=== PATIENT | female | born 1940 | race Caucasian/White ===

== ENCOUNTER 2016-11-01 07:17 | Day surgery (SDC) | payer MEDICARE, OTHER ==
[~2016-11-01 07:17] MED LIST: Lactated Ringers 1,000 ML IV SCH
[2016-11-01] MEDS ORDERED: Lidocaine 2% 100 MG/5 ML Syringe IVPUSH ONE (08:45)
[2016-11-01] MEDS ORDERED: Propofol 200 MG/20 ML SDV IV ONE (08:45)
[2016-11-01] MEDS ORDERED: Midazolam 1 MG/ML 2 ML SDV IV ONE (08:45)
--- NOTE | 2016-11-01 08:49 | PCM.PN ---
- General Info Date of Service: 11/01/16 - Review of Systems Systems Review Comment:: 76 y/o female here for EGD and esophageal dilation. She has mild URI but is stable to proceed. There has been no other significant changes from her recent evaluation. She agrees to proceed. - Patient Data Vitals - most recent: Last Vital Signs Temp 97.4 F 11/01/16 07:45 Pulse 79 11/01/16 07:45 Resp 18 11/01/16 07:45 BP 139/72 11/01/16 07:45 Pulse Ox 97 11/01/16 07:45 Weight - most recent: 140 lb Med Orders - Current: Current Medications Lactated Ringer's (Ringers, Lactated) 1,000 mls @ 125 mls/hr IV ASDIRECTED [facility] Last Admin: 11/01/16 08:33 Dose: 125 mls/hr - Problem List Review Problem List Initiated/Reviewed/Updated: Yes - My Orders Last 24 Hours: My Active Orders 10/31/16 09:55 Resuscitation Status Routine 11/01/16 07:15 Patient Status [ADT] Routine Patient to Empty Bladder [RC] ASDIRECTED Verify Patient Consent Obtain [RC] ASDIRECTED Lactated Ringers [Ringers, Lactated] 1,000 ml IV ASDIRECTED Peripheral IV Insertion Adult [OM.PC] Routine 11/01/16 Breakfast Nothing Per Oral Diet [DIET] - Assessment Assessment:: recurrent esophageal stenosis - Plan Plan:: EGD with Esophageal Dilation
--- NOTE | 2016-11-01 09:20 | PCM.OPNOTE ---
- General Post-Op/Procedure Note Date of Surgery/Procedure: 11/01/16 Operative Procedure(s): EGD with Balloon Dilation and Biopsy Findings: Esophageal stenosis and GE Jct Moderate sized hiatal hernia white patches on esophageal mucosa - possible nikole esophagitis Pre Op Diagnosis: Recurrent esophageal stenosis Post-Op Diagnosis: Recurrent eophageal stenosis. Hiatal Hernia. Possible nikole esophagitis Anesthesia Technique: MAC Primary Surgeon: Fred Weiner Pathology: Biopsies of Mid Esophagus EBL in mLs: 4 Complications: None Condition: Good
[2016-11-01 10:49] VITALS: BP 135/78
--- NOTE | 2016-11-01 12:15 | OR ---
DATE OF OPERATION: 11/01/2016 SURGEON: Fred Weiner MD PREOPERATIVE DIAGNOSIS: Recurrent esophageal stricture. POSTOPERATIVE DIAGNOSES: Recurrent esophageal stricture, hiatal hernia, and esophagitis. OPERATION PERFORMED: Esophagogastroduodenoscopy with balloon dilation of esophageal stricture and biopsy. 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 Her last dilation was about six months ago and she comes with increasing dysphagia for re-dilation of her stenosis. FINDINGS: At the GE junction 35 cm from the incisors, the patient has a moderate stenosis. There is a moderate-sized hiatal hernia just below this, approximately 3 cm in size. The remainder of her stomach and duodenum appear unremarkable except for some benign polypoid changes secondary to PPI use in the stomach. In the mid esophagus, the patient has multiple white patches consistent with fungal esophagitis. PROCEDURE IN DETAIL: The patient was taken to the procedure room. She was given intravenous sedation and her throat was topically anesthetized. With the mouth gag in place, the esophagus was intubated under direct visualization with the Olympus gastroscope. This was carefully advanced under direct visualization down through the esophagus, stomach, and to the third portion of the duodenum. Full examination of the duodenum as well as the stomach is carried out including retroflexed examination of the fundus. The Godengo balloon dilator was then placed through the scope and the dilation of the esophageal stenosis is carried out to a 54-Khmer. The stenosis did appear to respond well to this dilation. There was a mild amount of heme noted, but no evidence of esophageal injury. Examination of the mid esophagus did show the above-described white patches and so biopsies of this area are taken to rule out Khadijah esophagitis. With no sign of any complicating process, the scope was removed and the patient was taken from the procedure room in satisfactory condition. ESTIMATED BLOOD LOSS: 4 mL. COMPLICATIONS: None. PROGNOSIS: Good. /[id number] MEAGAN/ANGELA
== END 2016-11-01 10:57 | disposition home or self-care (01) ==
LOC: FB.SDS 07:17
PROVIDERS: ATTEND Surgery
DX: B37.81 Candidal esophagitis (principal); K22.8 Other specified diseases of esophagus; K44.9 Diaphragmatic hernia without obstruction or gangrene; Z88.1 Allergy status to other antibiotic agents; Z88.8 Allergy status to other drugs, medicaments and biological substances
CPT/HCPCS: 00740; 43233; 43239; 88305; 88312; J2250; J2704; J7120

== ENCOUNTER 2017-10-19 06:45 | Day surgery (SDC) | payer MEDICARE, OTHER ==
[~2017-10-19 06:45] MED LIST changes: +Sodium Chloride 0.9% 10 ML Syringe FLUSH PRN
[2017-10-19] MEDS ORDERED: Propofol 200 MG/20 ML SDV IV ONE (08:00)
[2017-10-19] MEDS ORDERED: ceFAZolin 1 GM Vial IV ONE (08:00)
--- NOTE | 2017-10-19 08:09 | PCM.PN ---
- General Info Date of Service: 10/19/17 - Review of Systems Systems Review Comment:: 77 y/o female here for EGD and Dilation. She has a history of recurring esophageal stricture. She is medically stable to proceed. She understands indications options and risks. There has been no recent significant change to her health status. Heart - Regular with Murmur and Valve click Lungs clear - Patient Data Vitals - Most Recent: Last Vital Signs Temp 97.3 F 10/19/17 07:36 Pulse 70 10/19/17 07:36 Resp 16 10/19/17 07:36 BP 157/75 H 10/19/17 07:36 Pulse Ox 92 L 10/19/17 07:36 Weight - Most Recent: 141 lb Med Orders - Current: Current Medications Lactated Ringer's (Ringers, Lactated) 1,000 mls @ 125 mls/hr IV ASDIRECTED [facility] Last Admin: 10/19/17 07:52 Dose: 125 mls/hr Sodium Chloride (Saline Flush) 10 ml FLUSH ASDIRECTED PRN PRN Reason: Keep Vein Open - Problem List Review Problem List Initiated/Reviewed/Updated: Yes - My Orders Last 24 Hours: My Active Orders 10/18/17 11:41 Resuscitation Status Routine 10/19/17 06:45 Patient Status [ADT] Routine Patient to Empty Bladder [RC] ASDIRECTED Verify Patient Consent Obtain [RC] ASDIRECTED Lactated Ringers [Ringers, Lactated] 1,000 ml IV ASDIRECTED Sodium Chloride 0.9% [Saline Flush] 10 ml FLUSH ASDIRECTED PRN Peripheral IV Insertion Adult [OM.PC] Routine - Assessment Assessment:: Recurring esophageal stricture with dysphagia - Plan Plan:: EGD with dilation
--- NOTE | 2017-10-19 08:39 | PCM.OPNOTE ---
- General Post-Op/Procedure Note Date of Surgery/Procedure: 10/19/17 Operative Procedure(s): EGD with Balloon Esophageal Dilation Findings: Moderate Stricture at GE Jct Hiatal Hernia Khadijah Esophagitis in Mid Esophagus Pre Op Diagnosis: Recurrent Esophageal Stricture. Anemia Post-Op Diagnosis: Recurrent Esophageal Stricture. Hiatal Hernia. Khadijah Esophagitis Anesthesia Technique: MAC Primary Surgeon: Fred Weiner Pathology: none Output, Urine Amount: 0 EBL in mLs: 5 Complications: None Condition: Good
[2017-10-19 11:28] VITALS: BP 164/70
--- NOTE | 2017-10-19 15:03 | OR ---
DATE OF OPERATION: 10/19/2017 SURGEON: Fred Weiner MD PREOPERATIVE DIAGNOSES: 1. Recurrent esophageal stricture. 2. Anemia. POSTOPERATIVE DIAGNOSES: 1. Recurrent esophageal stricture. 2. Hiatal hernia. 3. Khadijah esophagitis. OPERATIONS PERFORMED: Esophagogastroduodenoscopy with balloon esophageal dilation. INDICATIONS FOR SURGERY: This 77-year-old female has a history of a recurring distal esophageal stricture. This was last dilated approximately 6 months ago. She is beginning to have dysphagia again, and she comes for dilation of this stricture. She was also noted recently to have anemia. FINDINGS: The patient did have a moderately severe benign-appearing stricture at the GE junction, located at 36 cm from the incisors. There was no associated mass effect. Just below this stricture is an approximately 3 cm hiatal hernia, that does not otherwise appear to be acutely inflamed. In the patient's mid- esophagus, there are white patches grossly consistent with Khadijah esophagitis, which the patient has had in the past. It does not appear as severe as has been previously noted. During examination of her stomach and duodenum, no ulcers or other abnormalities were noted. No visible signs of potential bleeding source to explain her anemia were identified. PROCEDURE IN DETAIL: The patient was taken to the procedure room. She was given intravenous sedation, and her throat was topically anesthetized. With her in the left lateral decubitus position, the esophagus was intubated via a mouth guard under direct visualization. The scope was then carefully advanced down through the esophagus, through the stricture, into the stomach, and then on into the duodenum where examination to the third portion was performed. After carefully examining the duodenum, the scope was withdrawn back into the stomach, where full examination including retroflexed examination of the fundus was performed. The ActionX Quantum TTC esophageal dilating balloon was then advanced into the scope. The balloon was tested and then the balloon was positioned across the esophageal stricture. Three successive dilations were carried out up to 54-Chinese. This dilation resulted in visible improvement in the caliber of the stenosis. A moderate amount of heme was noted with the dilation, but no visible evidence of esophageal injury was identified. The dilating balloon was removed. Reinspection of the area showed no sign of complication. The scope was then slowly withdrawn, re-examining the stomach, GE junction, and esophagus. The scope was removed. The patient was then taken from the procedure room in a satisfactory condition. ESTIMATED BLOOD LOSS: 5 mL. COMPLICATIONS: None. PROGNOSIS: Good. /[id number] MEAGAN/ANGELA ESTRADA
== END 2017-10-19 10:20 | disposition home or self-care (01) ==
LOC: FB.SDS 06:45
PROVIDERS: ATTEND Surgery
DX: K22.2 Esophageal obstruction (principal); K44.9 Diaphragmatic hernia without obstruction or gangrene; D64.9 Anemia, unspecified; B37.81 Candidal esophagitis; I10 Essential (primary) hypertension; M34.1 CR(E)ST syndrome; M19.90 Unspecified osteoarthritis, unspecified site; Z79.01 Long term (current) use of anticoagulants; Z79.899 Other long term (current) drug therapy; Z88.8 Allergy status to other drugs, medicaments and biological substances; Z87.891 Personal history of nicotine dependence
CPT/HCPCS: J0690; J2704; J7120

== ENCOUNTER 2019-01-06 11:03 | Day surgery (SDC) | payer MEDICARE, OTHER ==
[2019-01-06] MEDS ORDERED: Midazolam 1 MG/ML 2 ML SDV IV ONE (11:04)
[2019-01-06] MEDS ORDERED: Propofol 200 MG/20 ML SDV IV ONE (11:04)
[2019-01-06] MEDS ORDERED: Lidocaine 2% 100 MG/5 ML Syringe IVPUSH ONE (11:04)
[2019-01-06] MEDS ORDERED: Lactated Ringers 800 ML IV ONE (11:04)
[2019-01-06] MEDS ORDERED: Lactated Ringers 1,000 ML IV SCH (11:15)
[2019-01-06] MEDS ORDERED: Sodium Chloride 0.9% 10 ML Syringe FLUSH PRN (11:15)
--- NOTE | 2019-01-06 13:53 | PCM.PN ---
- General Info Date of Service: 01/06/19 - Review of Systems Systems Review Comment:: 79 y/o female here for EGD with dilation of esophageal stricture. She is stable to proceed. There has been no significant changes to her health status since her last exam. She agrees to proceed accepting risks. - Patient Data Vitals - Most Recent: Last Vital Signs Temp 98.3 F 01/06/19 11:47 Pulse 72 01/06/19 11:47 Resp 20 01/06/19 11:47 BP 172/93 H 01/06/19 11:47 Pulse Ox 94 L 01/06/19 11:47 Weight - Most Recent: 137 lb 2 oz Med Orders - Current: Current Medications Lactated Ringer's (Ringers, Lactated) 1,000 mls @ 125 mls/hr IV ASDIRECTED [facility] Last Admin: 01/06/19 11:53 Dose: 125 mls/hr Sodium Chloride (Saline Flush) 10 ml FLUSH ASDIRECTED PRN PRN Reason: Keep Vein Open - Problem List Review Problem List Initiated/Reviewed/Updated: Yes - My Orders Last 24 Hours: My Active Orders 01/06/19 11:15 Patient Status [ADT] Routine Patient to Empty Bladder [RC] ASDIRECTED Verify Patient Consent Obtain [RC] ASDIRECTED Lactated Ringers [Ringers, Lactated] 1,000 ml IV ASDIRECTED Sodium Chloride 0.9% [Saline Flush] 10 ml FLUSH ASDIRECTED PRN Peripheral IV Insertion Adult [OM.PC] Routine 01/06/19 Breakfast Nothing Per Oral Diet [DIET] - Assessment Assessment:: Recurrent Esophageal Stricture with Dysphagia - Plan Plan:: EGD with Stricture Dilation
--- NOTE | 2019-01-06 14:40 | PCM.OPNOTE ---
- General Post-Op/Procedure Note Date of Surgery/Procedure: 01/06/19 Operative Procedure(s): EGD with Balloon Dilation of Esophageal Stricture Findings: Moderate stricture of esophagus at GE Jct. White esophageal patches consistent with Khadijah Esophagitis Pre Op Diagnosis: Recurrent esophageal stricture Post-Op Diagnosis: Recurrent esophageal stricture. Khadijah esophagitis Anesthesia Technique: [facility] – [place], [place] Primary Surgeon: Fred Weiner Pathology: none EBL in mLs: 3 Complications: None Condition: Good
[2019-01-06 15:28] VITALS: BP 159/90
--- NOTE | 2019-01-06 17:03 | OR ---
DATE OF OPERATION: 01/06/2019 SURGEON: Fred Weiner MD PREOPERATIVE DIAGNOSIS: Recurrent esophageal stricture. POSTOPERATIVE DIAGNOSIS: Recurrent esophageal stricture and Khadijah esophagitis. OPERATION PERFORMED: Esophagogastroduodenoscopy with balloon dilation of esophageal stricture. INDICATIONS FOR SURGERY: This 79-year-old female has a known history of recurring esophageal strictures. She is again noticing dysphagia and comes for stricture dilation. FINDINGS: At the GE junction, the patient has a moderately tight benign- appearing esophageal stricture. The gastroscope is able to pass through this before dilation. The remainder of the stomach and duodenum appear unremarkable except for some benign-appearing polyps in the lining of the stomach. The mid and upper portion of the esophagus had multiple white patches consistent with Khadijah esophagitis. PROCEDURE IN DETAIL: She was given intravenous sedation, and with her in the left lateral decubitus position, the gastroscope was advanced through a mouth guard into the oral cavity. Carefully, the gastroscope was advanced past the cricopharyngeus, and the upper part of the esophagus then examined with the findings consistent with Khadijah esophagitis identified. The scope was then carefully advanced down through the distal esophageal stricture into the stomach and into the duodenum where examination of the third portion was performed. After examining the duodenum, the scope was withdrawn back into the stomach, where full examination including retroflexed examination of the fundus was performed. The 8 x 18 balloon esophageal dilator was then selected and inserted. The distal esophageal stricture was dilated in a stepwise manner up to a full 54-Georgian. There was some heme that was produced by the dilation which seemed to be effective with improvement in the caliber of the stricture, but no sign of complication was noted. After the dilator was removed, reinspection of the stomach and area of dilation was performed. The esophagus was then also examined as the scope was withdrawn. The scope was removed. The patient was then taken from the procedure room in satisfactory condition. ESTIMATED BLOOD LOSS: 3 mL. COMPLICATIONS: None. PROGNOSIS: Good. /[id number] MEAGAN/ANGELA
== END 2019-01-06 15:50 | disposition home or self-care (01) ==
LOC: FB.SDS 11:03
PROVIDERS: ATTEND Surgery
DX: K22.2 Esophageal obstruction (principal); K31.7 Polyp of stomach and duodenum; B37.81 Candidal esophagitis; K21.9 Gastro-esophageal reflux disease without esophagitis; I10 Essential (primary) hypertension; M34.1 CR(E)ST syndrome; Z95.2 Presence of prosthetic heart valve; Z79.01 Long term (current) use of anticoagulants; Z79.82 Long term (current) use of aspirin; Z79.899 Other long term (current) drug therapy
CPT/HCPCS: 00731; 43233; J2001; J2250; J2704; J7120

== ENCOUNTER 2020-02-20 00:06 | Emergency (ER) | payer MEDICARE, OTHER ==
[2020-02-20 00:25] VITALS: BP 130/79; PULSE 81
--- NOTE | 2020-02-20 00:32 | EDM.PDOC ---
ED HPI GENERAL MEDICAL PROBLEM - General Stated Complaint: SHAKING Time Seen by Provider: 02/20/20 00:06 Source of Information: Reports: Patient History Limitations: Reports: No Limitations - History of Present Illness INITIAL COMMENTS - FREE TEXT/NARRATIVE: c/o weakness pt had flu vax this afternoon, found in a chair by granddaughter who thought her eyes were fluttering and called 911 pt Ox4 when EMS arrived, had some weakness from myasthenia gravis which is typical for her for this time of day, not on meds of MG granddaughter found her GF at home earlier this year and EMS thinks she may have panicked PO 93% initial and then repeat was 97% has been taking her meds PMH/PSH includes AVR, afib, ablation, no prior DC lives in own house, other family members did go to a wedding recently in the [facility] pt states she had her flu vax at 11a, then she was tired this afternoon, had gotten chicken from [employer] for supper and then was too tired to eat it usually goes to bed between 11p and MN, had fallen asleep in her chair when granddaughter found here feeling okay now except weak, no cough, denies f/c/d altho has temp 100 here (which may be d/t flu vax) will do workup d/t age and fever and weakness, pt agreeable - Related Data Allergies Allergy/AdvReac Type Severity Reaction Status Date / Time brimonidine tartrate Allergy Redness Verified 01/02/19 14:22 [From Alphagan P] carboxymethylcellulose sodium Allergy Itching Verified 01/02/19 14:22 [From Refresh Optive] glycerin Allergy Itching Verified 01/02/19 14:22 [From Refresh Optive] loratadine [From Claritin] Allergy Other Verified 01/02/19 14:22 clarithromycin [From Biaxin] AdvReac DIARRHES Verified 01/02/19 14:22 lisinopril AdvReac Cough Verified 01/02/19 14:22 Home Meds: Home Meds Albuterol Sulfate [Albuterol Sulfate HFA] 2 puff IH QID PRN 04/25/13 [History] Aspirin 81 mg PO DAILY 04/25/13 [History] Bimatoprost [Lumigan 0.01% Ophth Soln] 1 drop EYEBOTH BEDTIME 04/25/13 [History] Calcium Carbonate 600 mg PO BID 04/25/13 [History] Dorzolamide [Trusopt 2% Ophth Soln] 1 drop EYELF BID 04/25/13 [History] Fish Oil/Borage/Flax/Om3,6,9 1 [[place] 3-6-9 Complex Softgel] 1,000 mg PO DAILY 04/25/13 [History] Furosemide [Lasix] 20 mg PO DAILY PRN 04/25/13 [History] Lutein 20 mg PO DAILY 04/25/13 [History] Multivitamin [Multivitamins] 1 each PO DAILY 04/25/13 [History] Omeprazole [Prilosec] 20 mg PO DAILY 04/25/13 [History] Zinc Acetate [Galzin] 50 mg PO DAILY 04/25/13 [History] diphenhydrAMINE [Benadryl] 25 mg PO BEDTIME PRN 04/25/13 [History] Carboxymethylcell/Hypromellose [GenTeal Moderate to Severe Gel Drops] 1 drop EYEBOTH BEDTIME 11/03/14 [History] Warfarin [Coumadin] 5 mg PO DAILY 11/03/14 [History] Fluticasone/Salmeterol [Advair 100-50] 1 puff INH BID 11/04/14 [History] Losartan [Cozaar] 50 mg PO DAILY 04/19/15 [History] Diltiazem [Cardizem CD] 180 mg PO DAILY 04/27/16 [History] Diltiazem [Cardizem SR] 60 mg PO Q6H PRN 04/27/16 [History] Polyethylene Glycol 3350 [MiraLAX] 17 gm PO DAILY PRN 04/27/16 [History] Amoxicillin [Amoxil] 2,000 mg PO ASDIRECTED 10/31/16 [History] Nystatin/Triamcinolone Crm [Mycolog Crm] 1 applic TOP ASDIRECTED 10/31/16 [History] Triamcinolone Acetonide [Nasacort] 1 spr DOROTHY DAILY PRN 10/31/16 [History] Ferrous Sulfate 648 mg PO BID 10/19/17 [History] Acetaminophen [Tylenol Arthritis] 650 mg PO BID PRN 01/02/19 [History] Acetaminophen/Diphenhydramine [Tylenol Pm Ex-Strength Caplet] 1 each PO BEDTIME 01/02/19 [History] Dextran 70/Hypromellose [Genteal Tears 0.1%-0.3% Drop] 1 drop OP QID 01/02/19 [History] Enoxaparin [Lovenox] 60 mg SQ ASDIRECTED 01/02/19 [History] Rosuvastatin [Crestor] 10 mg PO DAILY 01/02/19 [History] Triamcinolone Acetonide [Kenalog 0.1% Crm] 1 applic TOP BID 01/02/19 [History] Amoxicillin/Potassium Clav [Augmentin 500-125 Tablet] 1 each PO BID #10 tablet 02/20/20 [Rx] Past Medical History HEENT History: Reports: Allergic Rhinitis, Cataract, Glaucoma, Impaired Vision Cardiovascular History: Reports: Afib, CAD, Heart Murmur, Heart Valve Replacement, Hypertension Other Cardiovascular History: psvt, avr, atrial flutter, Respiratory History: Reports: Asthma, Pneumonia, Recurrent Other Respiratory History: mild pulmonary hypertension Gastrointestinal History: Reports: Cholelithiasis, GERD Other Gastrointestinal History: ulcerative colitis, crest syndrome, colon polyps/RECURRENTESOPHAGEAL STRICTURES Genitourinary History: Reports: Other (See Below) Other Genitourinary History: 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: Musculoskeletal History: Reports: Osteoarthritis Neurological History: Reports: Migraines Other Neuro History: myasthenia gravis Psychiatric History: Reports: None Endocrine/Metabolic History: Reports: None Hematologic History: Reports: Anemia, Iron Deficiency Immunologic History: Reports: Other (See Below) Other Immunologic History: scleroderma, CREST SYNDROME Oncologic (Cancer) History: Reports: None Dermatologic History: Reports: Venous Stasis Dermatitis - Infectious Disease History Infectious Disease History: Reports: Chicken Pox, Measles, Mumps - Past Surgical History Head Surgeries/Procedures: Reports: None HEENT Surgical History: Reports: Cataract Surgery, Tonsillectomy Cardiovascular Surgical History: Reports: Cardiac Ablation, Carotid Endarterectomy, Valve Replacement Other Cardiovascular Surgeries/Procedures: cardiac ablation 03/2016 GI Surgical History: Reports: Appendectomy, Cholecystectomy, Colonoscopy, EGD Musculoskeletal Surgical History: Reports: Shoulder Surgery Other Musculoskeletal Surgeries/Procedures:: LEFT ROTATOR CUFF SURGERY. Social & Family History - Family History Family Medical History: Noncontributory - Caffeine Use Caffeine Use: Reports: Soda ED ROS GENERAL - Review of Systems Review Of Systems: See Below Constitutional: Reports: No Symptoms, Weakness, Fatigue. Denies: Fever, Chills, Night Sweats, Diaphoresis HEENT: Reports: No Symptoms Respiratory: Reports: No Symptoms. Denies: Shortness of Breath, Cough Cardiovascular: Reports: No Symptoms Endocrine: Reports: No Symptoms GI/Abdominal: Reports: No Symptoms : Reports: No Symptoms Musculoskeletal: Reports: No Symptoms Skin: Reports: No Symptoms Neurological: Reports: No Symptoms Psychiatric: Reports: No Symptoms Hematologic/Lymphatic: Reports: No Symptoms Immunologic: Reports: No Symptoms ED EXAM, GENERAL - Physical Exam Exam: See Below Exam Limited By: No Limitations General Appearance: Alert, WD/WN, No Apparent Distress, Other (alert, quite pleasant, answers questions readily, nonill, normal speech, good eye contact) Eye Exam: Bilateral Eye: EOMI, PERRL Ears: Normal External Exam, Hearing Grossly Normal Head: Atraumatic, Normocephalic Neck: Normal Inspection, Supple, Non-Tender, Full Range of Motion. No: Lymphadenopathy (R), Lymphadenopathy (L) Respiratory/Chest: No Respiratory Distress, Lungs Clear, Normal Breath Sounds, No Accessory Muscle Use, Chest Non-Tender, Other (good AE, no cough) Cardiovascular: Irregularly Irregular, Other (2/6 MIRZA at LSB, quiet precordium) GI/Abdominal: Normal Bowel Sounds, Soft, Non-Tender, No Distention Back Exam: Normal Inspection, Full Range of Motion. No: CVA Tenderness (R), CVA Tenderness (L) Extremities: Normal Inspection, Non-Tender, No Pedal Edema Neurological: Alert, Oriented, CN II-XII Intact, Normal Cognition, No Mot or/Sensory Deficits Psychiatric: Normal Affect, Normal Mood Skin Exam: Warm, Dry, Intact, Normal Color, No Rash Lymphatic: No Adenopathy Course - Vital Signs Last Recorded V/S: Last Vital Signs Temp 38.1 C 02/20/20 00:20 Pulse 81 02/20/20 00:20 Resp 18 02/20/20 00:20 BP 130/79 02/20/20 00:20 Pulse Ox 96 02/20/20 00:20 - Orders/Labs/Meds Orders: Active Orders 24 hr Category Date Time Status Chest 2V [CR] Stat Exams 02/20/20 00:29 Taken Labs: Laboratory Tests 02/20/20 02/20/20 02/20/20 Range/Units 00:45 00:45 00:45 WBC 8.7 (4.5-12.0) X10-3/uL RBC 4.10 (3.23-5.20) x10(6)uL Hgb 11.5 (11.5-15.5) g/dL Hct 35.1 (30.0-51.3) % MCV 85.7 (80-96) fL MCH 28.1 (27.7-33.6) pg MCHC 32.8 (32.2-35.4) g/dL RDW 14.9 (11.5-15.5) % Plt Count 215 (125-369) X10(3)uL MPV 7.7 (7.4-10.4) fL Neut % (Auto) 87.3 H (46-82) % Lymph % (Auto) 4.1 L (13-37) % [place] % (Auto) 5.7 (4-12) % Eos % (Auto) 3 (1.0-5.0) % Baso % (Auto) 0 (0-2) % Neut # (Auto) 7.6 (1.6-8.3) # Lymph # (Auto) 0.4 L (0.6-5.0) # [place] # (Auto) 0.5 (0.0-1.3) # Eos # (Auto) 0.2 (0.0-0.8) # Baso # (Auto) 0.0 (0.0-0.2) # PT 25.8 H (9.0-11.1) sec INR 2.54 H (1.00-1.24) Sodium 142 (135-145) mmol/L Potassium 4.6 (3.5-5.3) mmol/L Chloride 105 (100-110) mmol/L Carbon Dioxide 25 (21-32) mmol/L BUN 18 (7-18) mg/dL Creatinine 1.1 H (0.55-1.02) mg/dL Est Cr Clr Drug Dosing 38.19 mL/min Estimated GFR (MDRD) 48 L (>60) BUN/Creatinine Ratio 16.4 (9-20) Glucose 106 (80-116) mg/dL Calcium 8.5 L (8.6-10.2) mg/dL Total Bilirubin 0.4 (0.1-1.3) mg/dL AST 18 D (5-25) IU/L ALT 20 D (12-36) U/L Alkaline Phosphatase 107 (56-112) IU/L C-Reactive Protein (0.5-0.9) mg/dL Total Protein 6.9 (6.0-8.0) g/dL Albumin 3.5 (3.2-4.6) g/dL Globulin 3.4 g/dL Albumin/Globulin Ratio 1.0 Urine Color (YELLOW) Urine Appearance (CLEAR) Urine pH (5.0-6.5) Ur Specific Kennedy (1.010-1.025) Urine Protein (NEGATIVE) mg/dL Urine Glucose (UA) (NORMAL) mg/dL Urine Ketones (NEGATIVE) mg/dL Urine Occult Blood (NEGATIVE) Urine Nitrite (NEGATIVE) Urine Bilirubin (NEGATIVE) Urine Urobilinogen (NEGATIVE) mg/dL Ur Leukocyte Esterase (NEGATIVE) Urine RBC (0-5) Urine WBC (0-5) Ur Squamous Epith Cells (NS,R,O) Urine Bacteria (NS) SARS-CoV-2 RNA (NANCY) (NEGATIVE) 02/20/20 02/20/20 02/20/20 Range/Units 00:45 01:05 01:08 WBC (4.5-12.0) X10-3/uL RBC (3.23-5.20) x10(6)uL Hgb (11.5-15.5) g/dL Hct (30.0-51.3) % MCV (80-96) fL MCH (27.7-33.6) pg MCHC (32.2-35.4) g/dL RDW (11.5-15.5) % Plt Count (125-369) X10(3)uL MPV (7.4-10.4) fL Neut % (Auto) (46-82) % Lymph % (Auto) (13-37) % [place] % (Auto) (4-12) % Eos % (Auto) (1.0-5.0) % Baso % (Auto) (0-2) % Neut # (Auto) (1.6-8.3) # Lymph # (Auto) (0.6-5.0) # [place] # (Auto) (0.0-1.3) # Eos # (Auto) (0.0-0.8) # Baso # (Auto) (0.0-0.2) # PT (9.0-11.1) sec INR (1.00-1.24) Sodium (135-145) mmol/L Potassium (3.5-5.3) mmol/L Chloride (100-110) mmol/L Carbon Dioxide (21-32) mmol/L BUN (7-18) mg/dL Creatinine (0.55-1.02) mg/dL Est Cr Clr Drug Dosing mL/min Estimated GFR (MDRD) (>60) BUN/Creatinine Ratio (9-20) Glucose (80-116) mg/dL Calcium (8.6-10.2) mg/dL Total Bilirubin (0.1-1.3) mg/dL AST (5-25) IU/L ALT (12-36) U/L Alkaline Phosphatase (56-112) IU/L C-Reactive Protein 1.6 H (0.5-0.9) mg/dL Total Protein (6.0-8.0) g/dL Albumin (3.2-4.6) g/dL Globulin g/dL Albumin/Globulin Ratio Urine Color Yellow (YELLOW) Urine Appearance Clear (CLEAR) Urine pH 7.0 H (5.0-6.5) Ur Specific Kennedy 1.005 L (1.010-1.025) Urine Protein Negative (NEGATIVE) mg/dL Urine Glucose (UA) Normal (NORMAL) mg/dL Urine Ketones Negative (NEGATIVE) mg/dL Urine Occult Blood Negative (NEGATIVE) Urine Nitrite Negative (NEGATIVE) Urine Bilirubin Negative (NEGATIVE) Urine Urobilinogen Normal (NEGATIVE) mg/dL Ur Leukocyte Esterase Negative (NEGATIVE) Urine RBC 0-5 (0-5) Urine WBC 0-5 (0-5) Ur Squamous Epith Cells Occasional (NS,R,O) Urine Bacteria Rare H (NS) SARS-CoV-2 RNA (NANYC) Negative (NEGATIVE) Meds: Medications Discontinued Medications Generic Name Dose Route Start Last Admin Trade Name Freq PRN Reason Stop Dose Admin Acetaminophen 650 mg 02/20/20 01:50 Tylenol PO 02/20/20 01:51 NOW ONE Amoxicillin/Clavulanate Potassium 1 tab 02/20/20 02:23 Augmentin 500 Mg\125 Mg PO 02/20/20 02:24 ONETIME ONE - Re-Assessments/Exams Free Text/Narrative Re-Assessment/Exam: 02/20/20 02:32 CxR 2v is neg on prelim ED read u/a neg labs are essentially neg altho there is mild increase in neutrophils and CRP suggesting possible infection pt did have fatigue prior to her influenza vaccine, while she says that she has been under a lot of stress d/t family issues (to which she attributes her fatigue), the same stress and fatigue would increase her susceptibility to infection Departure - Departure Time of Disposition: 02:24 Disposition: Home, Self-Care 01 Condition: Good Clinical Impression: Fever, Elevated C-reactive protein (CRP), Left shift, Fatigue - Discharge Information *PRESCRIPTION DRUG MONITORING PROGRAM REVIEWED*: Not Applicable *COPY OF PRESCRIPTION DRUG MONITORING REPORT IN PATIENT PRATIK: Not Applicable Prescriptions: Amoxicillin/Potassium Clav [Augmentin 500-125 Tablet] 1 each PO BID #10 tablet Referrals: PCP,None [Primary Care Provider] - Additional Instructions: It is likely that your low grade fever is due to the influenza vaccine. However, two of your blood tests are slightly increased, suggesting that you may be developing an infection such as pneumonia that is not yet visible on chest x- ray. As a precaution, take the antibiotic Augmentin 500/125 mg 1 tab 2 times a day for 5 days. Continue your regular medications. Rest at home this weekend. See Dr Alcantara in 3 days for further evaluation and recommendations. However, if you are feeling worse in the meantime, return to the Emergency Department. Sepsis Event Note (ED) - Focused Exam Vital Signs: Vital Signs Temp Pulse Resp BP Pulse Ox 02/20/20 00:20 38.1 C 81 18 130/79 96 - My Orders Last 24 Hours: My Active Orders 02/20/20 00:29 Chest 2V [CR] Stat - Assessment/Plan Last 24 Hours: My Active Orders 02/20/20 00:29 Chest 2V [CR] Stat
[2020-02-20] MEDS ORDERED: Acetaminophen 325 MG Tab PO ONE (01:50)
[2020-02-20] MEDS ORDERED: Amoxicillin/Clavulanate K 500-125 MG Tab PO ONE (02:23)
== END 2020-02-20 07:40 | disposition home or self-care (01) ==
LOC: FB.ED 00:06
DX: R79.82 Elevated C-reactive protein (CRP) (principal); R53.83 Other fatigue; D72.828 Other elevated white blood cell count; I48.91 Unspecified atrial fibrillation; I25.10 Atherosclerotic heart disease of native coronary artery without angina pectoris; K21.9 Gastro-esophageal reflux disease without esophagitis; M19.90 Unspecified osteoarthritis, unspecified site; D50.9 Iron deficiency anemia, unspecified; Z88.8 Allergy status to other drugs, medicaments and biological substances; Z88.1 Allergy status to other antibiotic agents; Z79.82 Long term (current) use of aspirin; Z79.899 Other long term (current) drug therapy; Z79.01 Long term (current) use of anticoagulants; Z20.828 Contact with and (suspected) exposure to other viral communicable diseases
CPT/HCPCS: 36415; 71046; 80053; 81001; 85025; 85610; 86140; 99285; A9270; U0002

== ENCOUNTER 2020-04-21 06:17 | Day surgery (SDC) | payer MEDICARE, OTHER ==
[2020-04-21] MEDS ORDERED: Propofol 200 MG/20 ML SDV IV ONE (06:18)
[2020-04-21] MEDS ORDERED: Lidocaine 2% 5 ML SDV INJECT ONE (06:18)
--- NOTE | 2020-04-21 07:38 | PCM.PN ---
- General Info Date of Service: 04/21/20 - Review of Systems Systems Review Comment:: 80 y/o female with history of recurrent esophageal strictures and current symptoms of dysphagia here for EGD with Esophageal Dilation. She is stable to proceed with no significant changes to her health status since her recent clinic visit. She agrees to proceed accepting risks. - Patient Data Vitals - Most Recent: Last Vital Signs Temp 97.8 F 04/21/20 06:20 Pulse 69 04/21/20 06:20 Resp 16 04/21/20 06:20 BP 152/63 H 04/21/20 06:20 Pulse Ox 99 04/21/20 06:20 Weight - Most Recent: 139 lb 8.842 oz Med Orders - Current: Current Medications Lactated Ringer's (Ringers, Lactated) 1,000 mls @ 125 mls/hr IV ASDIRECTED SALO Last Admin: 04/21/20 06:55 Dose: 125 mls/hr Documented by: Sodium Chloride (Saline Flush) 10 ml FLUSH ASDIRECTED PRN PRN Reason: Keep Vein Open Sepsis Event Note - Focused Exam Vital Signs: Vital Signs Temp Pulse Resp BP Pulse Ox 04/21/20 06:20 97.8 F 69 16 152/63 H 99 - Problem List Review Problem List Initiated/Reviewed/Updated: Yes - My Orders Last 24 Hours: My Active Orders 04/20/20 11:24 Resuscitation Status Routine 04/20/20 Dinner Nothing Per Oral Diet [DIET] 04/21/20 06:15 Patient Status [ADT] Routine Patient to Empty Bladder [RC] ASDIRECTED Verify Patient Consent Obtain [RC] ASDIRECTED Lactated Ringers [Ringers, Lactated] 1,000 ml IV ASDIRECTED Sodium Chloride 0.9% [Saline Flush] 10 ml FLUSH ASDIRECTED PRN Peripheral IV Insertion Adult [OM.PC] Routine - Assessment Assessment:: Dysphagia with history of esophageal stricture - Plan Plan:: EGD with probable dilation.
--- NOTE | 2020-04-21 08:04 | PCM.OPNOTE ---
- General Post-Op/Procedure Note Date of Surgery/Procedure: 04/21/20 Operative Procedure(s): EGD with Balloon Esophageal Dilation Findings: Moderate Esophageal stricture at GE Jct. Moderate to Extensive Khadijah Esophagitis in mid esophagus Small hiatal hernia Pre Op Diagnosis: Dysphagia Post-Op Diagnosis: Esophageal Stricture. Khadijah Esophagitis. Hiatal Hernia Anesthesia Technique: MAC Primary Surgeon: Fred Weiner Pathology: none EBL in mLs: 3 Complications: None Condition: Good
--- NOTE | 2020-04-21 11:19 | OR ---
DATE OF OPERATION: 04/21/2020 SURGEON: Fred Weiner MD PREOPERATIVE DIAGNOSIS: Dysphagia. POSTOPERATIVE DIAGNOSES: 1. Esophageal stricture. 2. Khadijah esophagitis. 3. Hiatal hernia. OPERATION PERFORMED: Esophagogastroduodenoscopy with balloon esophageal dilation. INDICATIONS FOR SURGERY: This 80-year-old female, who has a history of recurring esophageal strictures, has developed symptoms of dysphagia and comes now for EGD. FINDINGS: The patient has a moderate stricture of the distal esophagus at the GE junction. This appears benign and consistent with previous strictures that she has had. She also has a moderate to extensive amount of white patches in the midesophagus consistent with Khadijah esophagitis. She also has a small hiatal hernia. The remainder of the stomach and the proximal duodenum appear normal. PROCEDURE IN DETAIL: The patient was taken to the procedure room. She was given intravenous sedation, and with her in the left lateral decubitus position, the Olympus gastroscope was advanced through a mouth guard into the oral cavity. Under direct visualization, the scope was then advanced down through the esophagus, stomach, and into the duodenum where examination to the 3rd portion was performed. After examining the duodenum, the scope was withdrawn back into the stomach where full examination was carried out including retroflexed examination of the fundus. The GE junction was carefully examined, and the stricture was identified. An 18 x 8 dilating balloon was then placed, and successive dilations were carried out to the full diameter of the balloon. This resulted in moderate mucosal disruption and improvement in the stricture. The balloon was removed. Reinspection of the area showed no sign of any complication. The scope was then slowly withdrawn and removed. The patient was then taken from the procedure room in satisfactory condition. ESTIMATED BLOOD LOSS: 3 mL. COMPLICATIONS: None. PROGNOSIS: Good. /[id number] MEAGAN/ANGELA
[2020-04-21 12:23] VITALS: PULSE 67
[2020-04-21 12:24] VITALS: BP 157/59
== END 2020-04-21 08:40 | disposition home or self-care (01) ==
LOC: FB.SDS 06:17
PROVIDERS: ATTEND Surgery
DX: K22.2 Esophageal obstruction (principal); B37.81 Candidal esophagitis; K44.9 Diaphragmatic hernia without obstruction or gangrene; I10 Essential (primary) hypertension; I48.0 Paroxysmal atrial fibrillation; Z90.49 Acquired absence of other specified parts of digestive tract; Z88.8 Allergy status to other drugs, medicaments and biological substances; Z79.82 Long term (current) use of aspirin; Z87.891 Personal history of nicotine dependence
CPT/HCPCS: 00731-QZ; C1726; J2001; J2704; J7120

== ENCOUNTER 2020-07-26 06:52 | Day surgery (SDC) | payer MEDICARE, OTHER ==
[2020-07-26] MEDS ORDERED: Propofol 200 MG/20 ML SDV IV ONE (06:53)
[2020-07-26] MEDS ORDERED: Lidocaine 2% 100 MG/5 ML Syringe IVPUSH ONE (06:53)
--- NOTE | 2020-07-26 09:03 | PCM.PN ---
- General Info Date of Service: 07/26/20 - Review of Systems Systems Review Comment:: 80 y/o female with history of recurring esophageal stricture here with increasing dysphagia. She is medically stable to proceed. Her recent H and P is reviewed and no significant changes are noted. I discussed the proposed EGD with dilation with the patient and she agrees to proceed accepting risks. - Patient Data Vitals - Most Recent: Last Vital Signs Temp 97.4 F 07/26/20 08:50 Pulse 61 07/26/20 08:50 Resp 18 07/26/20 08:50 BP 133/47 L 07/26/20 08:50 Pulse Ox 99 07/26/20 08:50 Weight - Most Recent: 139 lb Med Orders - Current: Current Medications Lactated Ringer's (Ringers, Lactated) 1,000 mls @ 125 mls/hr IV ASDIRECTED SALO Last Admin: 07/26/20 07:30 Dose: 125 mls/hr Documented by: Sodium Chloride (Sodium Chloride 0.9% 10 Ml Syringe) 10 ml FLUSH ASDIRECTED PRN PRN Reason: Keep Vein Open Sepsis Event Note - Focused Exam Vital Signs: Vital Signs Temp Pulse Resp BP Pulse Ox 07/26/20 08:50 97.4 F 61 18 133/47 L 99 07/26/20 07:30 156/65 H 07/26/20 06:55 97.2 F 75 16 172/67 H 96 - Problem List Review Problem List Initiated/Reviewed/Updated: Yes - My Orders Last 24 Hours: My Active Orders 07/25/20 Dinner Nothing Per Oral Diet [DIET] 07/26/20 06:45 Patient Status [ADT] Routine Patient to Empty Bladder [RC] ASDIRECTED Verify Patient Consent Obtain [RC] ASDIRECTED Sodium Chloride 0.9% [Saline Flush] 10 ml FLUSH ASDIRECTED PRN Peripheral IV Insertion Adult [OM.PC] Routine - Assessment Assessment:: Dysphagia with history of recurring esophageal strictures - Plan Plan:: EGD with Dilation
--- NOTE | 2020-07-26 09:09 | PCM.OPNOTE ---
- General Post-Op/Procedure Note Date of Surgery/Procedure: 07/26/20 Operative Procedure(s): EGD with balloon esophageal dilation Findings: Distal esophageal stricture Hiatal Hernia Gastric Polyps Suspect persistent nikole esophagitis Pre Op Diagnosis: Dysphagia with history of esophageal stricture Post-Op Diagnosis: Esophageal stricture Anesthesia Technique: MAC Primary Surgeon: Fred Weiner Pathology: none EBL in mLs: 2 Complications: None Condition: Good
[2020-07-26 09:24] VITALS: BP 172/64; PULSE 64
--- NOTE | 2020-07-26 16:04 | OR ---
DATE OF OPERATION: 07/26/2020 SURGEON: Fred Weiner MD PREOPERATIVE DIAGNOSIS: Dysphagia with history of esophageal stricture. POSTOPERATIVE DIAGNOSES: Esophageal stricture, hiatal hernia, gastric polyps. OPERATION PERFORMED: Esophagogastroduodenoscopy with balloon esophageal dilation. INDICATIONS FOR SURGERY: This 80-year-old female has a history of recurring distal esophageal strictures. She has again developed dysphagia consistent with redevelopment of the stricture and she comes for EGD and dilation. FINDINGS: At the patient's GE junction, a single benign-appearing stricture has again developed of moderate narrowing. There is an associated hiatal hernia just below this stricture. The gastric mucosa appears minimally generally inflamed, and there are multiple benign polyps, but no ulcers or other pathology is seen. Her duodenum appears normal. The esophageal lining does again contain findings consistent with possible Khadijah esophagitis as the patient has had in the past although improved from before. PROCEDURE IN DETAIL: The patient was taken to the operating room. She was given intravenous sedation, and with her in the left lateral decubitus position, the Olympus gastroscope was advanced into the oral cavity through a mouth guard. Under direct visualization, the scope was then advanced down through the esophagus, stomach, and into the duodenum where examination to the third portion was performed. After examining the duodenum and the stomach including retroflexed examination of the fundus, an esophageal dilating balloon was then inserted, and after testing the balloon, this balloon was used in successive gradual dilations to dilate the patient's stricture to 54 [place]. There was a moderate amount of heme associated with this and dilation appeared to be satisfactory. There was no evidence of any complication. After reinspecting the stomach and the esophagus and showing no evidence of complication, the scope was removed and the patient was taken from the operating room in satisfactory condition. ESTIMATED BLOOD LOSS: 2 mL. COMPLICATIONS: None. PROGNOSIS: Good. /[id number] MEAGAN/ANGELA ESTRADA
== END 2020-07-26 10:22 | disposition home or self-care (01) ==
LOC: FB.SDS 06:52
PROVIDERS: ATTEND Surgery
DX: K22.2 Esophageal obstruction (principal); K31.7 Polyp of stomach and duodenum; K44.9 Diaphragmatic hernia without obstruction or gangrene; I10 Essential (primary) hypertension; E78.5 Hyperlipidemia, unspecified; R53.83 Other fatigue; I48.0 Paroxysmal atrial fibrillation; J45.909 Unspecified asthma, uncomplicated; Z88.8 Allergy status to other drugs, medicaments and biological substances; Z79.899 Other long term (current) drug therapy; Z87.891 Personal history of nicotine dependence; Z98.890 Other specified postprocedural states
CPT/HCPCS: 00731-QZ; C1726; J2704; J7120

== ENCOUNTER 2021-04-18 06:53 | Day surgery (SDC) | payer MEDICARE, OTHER ==
[2021-04-18] MEDS ORDERED: Propofol 200 MG/20 ML SDV IV ONE (06:54)
[2021-04-18] MEDS ORDERED: Lactated Ringers 1,000 ML IV SCH (09:00)
[2021-04-18] MEDS ORDERED: Sodium Chloride 0.9% 10 ML Syringe FLUSH PRN (09:00)
--- NOTE | 2021-04-18 10:27 | PCM.PN ---
- General Info Date of Service: 04/18/21 - Review of Systems General: Reports: Other (Recovering from fall with fracture of pelvis and wrist) Pulmonary: Reports: No Symptoms, Shortness of Breath Cardiovascular: Reports: Other (being followed be cardiology). Denies: Chest Pain Gastrointestinal: Reports: Difficulty Swallowing (slowly worsening since last esophageal dilation) - Patient Data Vitals - Most Recent: Last Vital Signs Temp 98.8 F 04/18/21 08:35 Pulse 69 04/18/21 08:35 Resp 16 04/18/21 08:35 BP 170/71 H 04/18/21 08:35 Pulse Ox 98 04/18/21 08:35 Weight - Most Recent: 136 lb Med Orders - Current: Current Medications Lactated Ringer's (Ringers, Lactated) 1,000 mls @ 125 mls/hr IV ASDIRECTED SALO Last Admin: 04/18/21 08:50 Dose: 125 mls/hr Documented by: Sodium Chloride (Sodium Chloride 0.9% 10 Ml Syringe) 10 ml FLUSH ASDIRECTED PRN PRN Reason: Keep Vein Open - Exam General: Alert, Oriented Lungs: Clear to Auscultation, Normal Respiratory Effort Cardiovascular: Regular Rate, Regular Rhythm GI/Abdominal Exam: Soft, Non-Tender Sepsis Event Note - Focused Exam Vital Signs: Vital Signs Temp Pulse Resp BP Pulse Ox 04/18/21 08:35 98.8 F 69 16 170/71 H 98 - Problem List Review Problem List Initiated/Reviewed/Updated: Yes - My Orders Last 24 Hours: My Active Orders 04/18/21 Breakfast Nothing Per Oral Diet [DIET] 04/18/21 09:00 Patient Status [ADT] Routine Patient to Empty Bladder [RC] ASDIRECTED Verify Patient Consent Obtain [RC] ASDIRECTED Lactated Ringers [Ringers, Lactated] 1,000 ml IV ASDIRECTED Sodium Chloride 0.9% [Saline Flush] 10 ml FLUSH ASDIRECTED PRN Peripheral IV Insertion Adult [OM.PC] Routine - Assessment Assessment:: Dysphagia with history of recurring esophageal stenosis History of CREST syndrome healing fractures in pelvis and wrist after fall - Plan Plan:: EGD with esophgeal dilation
--- NOTE | 2021-04-18 11:06 | PCM.OPNOTE ---
- General Post-Op/Procedure Note Date of Surgery/Procedure: 04/18/21 Operative Procedure(s): EGD with balloon esophageal dilation Findings: Moderate esophageal stricture at GE Jct. Moderate sized hiatal hernia Pre Op Diagnosis: Recurent esophageal stricture Post-Op Diagnosis: Same Anesthesia Technique: MAC Primary Surgeon: Fred Weiner Pathology: none EBL in mLs: 3 Complications: None Condition: Good
[2021-04-18 11:45] VITALS: BP 150/63; PULSE 67
--- NOTE | 2021-04-18 12:24 | OR ---
DATE OF OPERATION: 04/18/2021 SURGEON: Fred Weiner MD PREOPERATIVE DIAGNOSIS: Recurrent esophageal stricture. POSTOPERATIVE DIAGNOSIS: Recurrent esophageal stricture. OPERATION PERFORMED: Esophagogastroduodenoscopy with balloon esophageal dilation. INDICATIONS FOR SURGERY: This 81-year-old female with a known history of hiatal hernia and CREST syndrome has a history of recurring esophageal strictures. These require periodic dilation and she is again noticing dysphagia and comes for this procedure. FINDINGS: The patient does have a moderate esophageal stricture at the GE junction. The scope is able to traverse this stricture prior to dilation. There is a moderate-sized hiatal hernia, but the remainder of the duodenum and stomach appear normal. The patient also has a history of Khadijah esophagitis and only minimal findings consistent with that are noted on today's exam. PROCEDURE: The patient was taken to the procedure room. She was given intravenous sedation and her throat was topically anesthetized. She was given intravenous sedation. The Olympus gastroscope was advanced through a mouth guard into the oral cavity. Under direct visualization, the scope was then carefully advanced through the oropharynx into the esophagus and then on down through the esophagus. It traversed the stricture and was advanced into the stomach. The scope was advanced down through the stomach and into the duodenum where examination to the fourth portion was performed. After examining the duodenum, the scope was withdrawn back into the stomach and full examination including retroflexed examination of the fundus was performed. The dilating balloon which was 8 x 18 mm was then placed through the scope and after assuring that the balloon dilated properly, it was positioned at the level of the esophageal stricture. It was dilated to 1.8 atmospheres and then dilated up to 2.6 atmospheres. This did appear to result in significant dilation of the stricture. There was a moderate amount of heme noted, and the balloon was not dilated to any more than this level. Reinspection of the stricture was then carried out. Good dilation appeared to have been achieved and no sign of any complication noted. The scope was removed and the patient was taken from the procedure room in satisfactory condition. ESTIMATED BLOOD LOSS: 3 mL. COMPLICATIONS: None. PROGNOSIS: Good. /[id number] MEAGAN/ANGELA ESTRADA
== END 2021-04-18 12:00 | disposition home or self-care (01) ==
LOC: FB.SDS 06:53
PROVIDERS: ATTEND Surgery
DX: K22.2 Esophageal obstruction (principal); K44.9 Diaphragmatic hernia without obstruction or gangrene; M34.1 CR(E)ST syndrome; E78.5 Hyperlipidemia, unspecified; I10 Essential (primary) hypertension; H18.519 Endothelial corneal dystrophy, unspecified eye; I48.0 Paroxysmal atrial fibrillation; D64.9 Anemia, unspecified; J45.20 Mild intermittent asthma, uncomplicated; I27.20 Pulmonary hypertension, unspecified; I49.1 Atrial premature depolarization; G72.0 Drug-induced myopathy; T46.6X5A Adverse effect of antihyperlipidemic and antiarteriosclerotic drugs, initial encounter; R93.1 Abnormal findings on diagnostic imaging of heart and coronary circulation; K21.9 Gastro-esophageal reflux disease without esophagitis; Z79.899 Other long term (current) drug therapy; Z79.82 Long term (current) use of aspirin; Z87.891 Personal history of nicotine dependence; Z88.8 Allergy status to other drugs, medicaments and biological substances; Z79.01 Long term (current) use of anticoagulants
CPT/HCPCS: 00731; 43249; J2704; J7120

== ENCOUNTER 2021-07-07 14:18 | Inpatient (IN) | payer MEDICARE, OTHER ==
[2021-07-07] MEDS ORDERED: Polyethylene Glycol 3350 Powder 17 GM Packet PO PRN (15:16)
[2021-07-07] MEDS ORDERED: Acetaminophen 650 MG Tab.ER PO PRN (15:16)
[2021-07-07] MEDS ORDERED: Albuterol 8 GM Inhaler INH PRN (15:16)
[2021-07-07] MEDS ORDERED: Warfarin Sliding Scale PO SCH (15:30)
[2021-07-07] MEDS: Hypromellose 0.3% Ophth Soln 15 ML Bottle EYEBOTH SCH ×2 (17:40→21:05)
[2021-07-07] MEDS: Ferrous Sulfate 325 MG Tab PO SCH (17:41)
[2021-07-07] MEDS: Oxybutynin 5 MG Tab.ER PO SCH (17:41)
[2021-07-07] MEDS: Formoterol/Mometasone 100-5 MCG 8.8 GM Inhaler IH SCH (21:04)
[2021-07-07] MEDS: Dorzolamide 2% Ophth Soln 10 ML Bottle EYELF SCH (21:05)
[2021-07-07] MEDS: Acetaminophen 500 MG Tab PO SCH (21:06)
[2021-07-07] MEDS: Latanoprost 0.005% Ophth Soln 2.5 ML Bottle EYEBOTH SCH (21:07)
[2021-07-08] MEDS: Pantoprazole 40 MG Tab.CR PO SCH (06:07)
[2021-07-08] MEDS: Metoprolol Succinate 25 MG Tab.ER PO SCH (08:31)
[2021-07-08] MEDS: Zinc Sulfate 220 MG Cap PO SCH (08:31)
[2021-07-08] MEDS: Fish Oil/Omega-3 Fatty Acids 1 Gm Cap PO SCH (08:32)
[2021-07-08] MEDS: Rosuvastatin 10 MG Tab PO SCH (08:32)
[2021-07-08] MEDS: Multivitamin Tab PO SCH (08:32)
[2021-07-08] MEDS: Magnesium Oxide 400 MG Tab PO SCH (08:33)
[2021-07-08] MEDS: Diltiazem 120 MG Cap.CD PO SCH (08:33)
[2021-07-08] MEDS: Aspirin 81 MG Tab.EC PO SCH (08:33)
[2021-07-08] MEDS: Ferrous Sulfate 325 MG Tab PO SCH ×2 (08:34→17:31)
[2021-07-08] MEDS: Formoterol/Mometasone 100-5 MCG 8.8 GM Inhaler IH SCH ×2 (08:34→20:58)
[2021-07-08] MEDS: Hypromellose 0.3% Ophth Soln 15 ML Bottle EYEBOTH SCH ×4 (08:35→20:58)
[2021-07-08] MEDS: Dorzolamide 2% Ophth Soln 10 ML Bottle EYELF SCH ×2 (08:35→20:58)
[2021-07-08] MEDS: Warfarin 5 MG Tab PO SCH (16:18)
[2021-07-08] MEDS: Oxybutynin 5 MG Tab.ER PO SCH (17:31)
[2021-07-08] MEDS: Acetaminophen 500 MG Tab PO SCH (20:57)
[2021-07-08] MEDS: Latanoprost 0.005% Ophth Soln 2.5 ML Bottle EYEBOTH SCH (21:04)
[2021-07-09] MEDS: Pantoprazole 40 MG Tab.CR PO SCH (06:13)
[2021-07-09] MEDS: Ferrous Sulfate 325 MG Tab PO SCH ×2 (08:29→18:15)
[2021-07-09] MEDS: Fish Oil/Omega-3 Fatty Acids 1 Gm Cap PO SCH (08:30)
[2021-07-09] MEDS: Rosuvastatin 10 MG Tab PO SCH (08:30)
[2021-07-09] MEDS: Formoterol/Mometasone 100-5 MCG 8.8 GM Inhaler IH SCH ×2 (08:31→21:12)
[2021-07-09] MEDS: Diltiazem 120 MG Cap.CD PO SCH (08:32)
[2021-07-09] MEDS: Hypromellose 0.3% Ophth Soln 15 ML Bottle EYEBOTH SCH ×4 (08:38→21:13)
[2021-07-09] MEDS: Magnesium Oxide 400 MG Tab PO SCH (08:39)
[2021-07-09] MEDS: Multivitamin Tab PO SCH (08:39)
[2021-07-09] MEDS: Aspirin 81 MG Tab.EC PO SCH (08:39)
[2021-07-09] MEDS: Metoprolol Succinate 25 MG Tab.ER PO SCH (08:40)
[2021-07-09] MEDS: Dorzolamide 2% Ophth Soln 10 ML Bottle EYELF SCH ×2 (08:41→21:13)
[2021-07-09] MEDS: Zinc Sulfate 220 MG Cap PO SCH (08:41)
[2021-07-09] MEDS: Warfarin 5 MG Tab PO SCH (16:30)
[2021-07-09] MEDS: Oxybutynin 5 MG Tab.ER PO SCH (18:15)
[2021-07-09] MEDS: Acetaminophen 500 MG Tab PO SCH (21:12)
[2021-07-09] MEDS: Latanoprost 0.005% Ophth Soln 2.5 ML Bottle EYEBOTH SCH (21:13)
[2021-07-10] MEDS: Pantoprazole 40 MG Tab.CR PO SCH (06:20)
[2021-07-10 06:54] VITALS: BP 149/54; PULSE 67
[2021-07-10] MEDS: Fish Oil/Omega-3 Fatty Acids 1 Gm Cap PO SCH (08:12)
[2021-07-10] MEDS: Ferrous Sulfate 325 MG Tab PO SCH (08:12)
[2021-07-10] MEDS: Hypromellose 0.3% Ophth Soln 15 ML Bottle EYEBOTH SCH ×2 (08:13→12:41)
[2021-07-10] MEDS: Dorzolamide 2% Ophth Soln 10 ML Bottle EYELF SCH (08:13)
[2021-07-10] MEDS: Formoterol/Mometasone 100-5 MCG 8.8 GM Inhaler IH SCH (08:13)
[2021-07-10] MEDS: Zinc Sulfate 220 MG Cap PO SCH (08:14)
[2021-07-10] MEDS: Multivitamin Tab PO SCH (08:14)
[2021-07-10] MEDS: Metoprolol Succinate 25 MG Tab.ER PO SCH (08:14)
[2021-07-10] MEDS: Rosuvastatin 10 MG Tab PO SCH (08:15)
[2021-07-10] MEDS: Aspirin 81 MG Tab.EC PO SCH (08:15)
[2021-07-10] MEDS: Magnesium Oxide 400 MG Tab PO SCH (08:15)
[2021-07-10] MEDS: Diltiazem 120 MG Cap.CD PO SCH (08:16)
[2021-07-11] MEDS ORDERED: Warfarin 2.5 MG Tab PO SCH (16:00)
== END 2021-07-10 14:40 | disposition home or self-care (01) | DRG 947 ==
LOC: FB.MS 14:18
PROVIDERS: ADMIT Family Medicine; ATTEND Family Medicine
DX: R53.81 Other malaise (principal); G93.41 Metabolic encephalopathy; I21.A1 Myocardial infarction type 2; N39.0 Urinary tract infection, site not specified; N17.9 Acute kidney failure, unspecified; I10 Essential (primary) hypertension; G70.00 Myasthenia gravis without (acute) exacerbation; I48.91 Unspecified atrial fibrillation; I27.20 Pulmonary hypertension, unspecified; H54.7 Unspecified visual loss; I25.10 Atherosclerotic heart disease of native coronary artery without angina pectoris; K21.9 Gastro-esophageal reflux disease without esophagitis; M19.90 Unspecified osteoarthritis, unspecified site; D64.9 Anemia, unspecified; I48.0 Paroxysmal atrial fibrillation; M34.1 CR(E)ST syndrome; N32.81 Overactive bladder; E78.5 Hyperlipidemia, unspecified; Z88.1 Allergy status to other antibiotic agents; Z88.8 Allergy status to other drugs, medicaments and biological substances; Z79.01 Long term (current) use of anticoagulants; Z79.899 Other long term (current) drug therapy; Z95.2 Presence of prosthetic heart valve; Z79.82 Long term (current) use of aspirin; Z87.01 Personal history of pneumonia (recurrent); Z90.49 Acquired absence of other specified parts of digestive tract
CPT/HCPCS: 36415; 85610; 97110-GO; 97110-GP; 97161-GP; 97166-GO; 97530-GO; 97530-GP; A9270-GY

== ENCOUNTER 2022-09-20 11:20 | Inpatient (IN) | payer MEDICARE, OTHER ==
[2022-09-20] MEDS ORDERED: Albuterol 8 GM Inhaler INH PRN (14:07)
[2022-09-20] MEDS ORDERED: Warfarin 5 MG Tab PO ONE (16:00)
[2022-09-20] MEDS: Ferrous Sulfate 325 MG Tab PO SCH (17:24)
[2022-09-20] MEDS: Hypromellose 0.3% Ophth Soln 15 ML Bottle EYEBOTH SCH ×2 (17:24→21:06)
[2022-09-20] MEDS: Formoterol/Mometasone 200-5 MCG 8.8 GM Inhaler IH SCH (21:06)
[2022-09-20] MEDS: Acetaminophen 500 MG Tab PO SCH (21:10)
[2022-09-20] MEDS: Dorzolamide 2% Ophth Soln 10 ML Bottle EYELF SCH (21:11)
[2022-09-20] MEDS: Latanoprost 0.005% Ophth Soln 2.5 ML Bottle EYEBOTH SCH (21:11)
[2022-09-21] MEDS: Pantoprazole 40 MG Tab.CR PO SCH (06:02)
[2022-09-21 06:45] LABS: INR 1.5 (1.00-1.24); PROTHROMBIN TIME 15.2 sec (9.0-11.1)
[2022-09-21] MEDS: Aspirin 81 MG Tab.EC PO SCH (09:08)
[2022-09-21] MEDS: Zinc Sulfate 220 MG Cap PO SCH (09:08)
[2022-09-21] MEDS: Ferrous Sulfate 325 MG Tab PO SCH ×2 (09:08→17:32)
[2022-09-21] MEDS: Polyethylene Glycol 3350 Powder 17 GM Packet PO SCH (09:08)
[2022-09-21] MEDS: Multivitamin Tab PO SCH (09:08)
[2022-09-21] MEDS: Cetirizine 10 MG Tab PO SCH (09:09)
[2022-09-21] MEDS: Cyanocobalamin (Vitamin B12) 1,000 MCG Tab PO SCH (09:09)
[2022-09-21] MEDS: Dorzolamide 2% Ophth Soln 10 ML Bottle EYELF SCH ×2 (09:09→21:29)
[2022-09-21] MEDS: Fish Oil/Omega-3 Fatty Acids 1 Gm Cap PO SCH (09:10)
[2022-09-21] MEDS: Magnesium Oxide 400 MG Tab PO SCH (09:10)
[2022-09-21] MEDS: Formoterol/Mometasone 200-5 MCG 8.8 GM Inhaler IH SCH ×2 (09:10→21:29)
[2022-09-21] MEDS: Hypromellose 0.3% Ophth Soln 15 ML Bottle EYEBOTH SCH ×4 (09:10→21:29)
[2022-09-21] MEDS ORDERED: Warfarin Sliding Scale PO SCH (16:00)
[2022-09-21] MEDS: Warfarin 5 MG Tab PO SCH (17:32)
[2022-09-21] MEDS: Latanoprost 0.005% Ophth Soln 2.5 ML Bottle EYEBOTH SCH (21:29)
[2022-09-21] MEDS: Acetaminophen 500 MG Tab PO SCH (21:30)
[2022-09-22] MEDS: Pantoprazole 40 MG Tab.CR PO SCH (06:20)
[2022-09-22 06:52] LABS: INR 1.66 (1.00-1.24); PROTHROMBIN TIME 16.9 sec (9.0-11.1)
[2022-09-22] MEDS: Fish Oil/Omega-3 Fatty Acids 1 Gm Cap PO SCH (08:34)
[2022-09-22] MEDS: Ferrous Sulfate 325 MG Tab PO SCH ×2 (08:34→18:12)
[2022-09-22] MEDS: Aspirin 81 MG Tab.EC PO SCH (08:35)
[2022-09-22] MEDS: Cetirizine 10 MG Tab PO SCH (08:35)
[2022-09-22] MEDS: Formoterol/Mometasone 200-5 MCG 8.8 GM Inhaler IH SCH ×2 (08:35→20:01)
[2022-09-22] MEDS: Dorzolamide 2% Ophth Soln 10 ML Bottle EYELF SCH ×2 (08:35→20:01)
[2022-09-22] MEDS: Multivitamin Tab PO SCH (08:35)
[2022-09-22] MEDS: Magnesium Oxide 400 MG Tab PO SCH (08:35)
[2022-09-22] MEDS: Zinc Sulfate 220 MG Cap PO SCH (08:35)
[2022-09-22] MEDS: Cyanocobalamin (Vitamin B12) 1,000 MCG Tab PO SCH (08:35)
[2022-09-22] MEDS: Hypromellose 0.3% Ophth Soln 15 ML Bottle EYEBOTH SCH ×4 (08:35→20:01)
[2022-09-22] MEDS: Polyethylene Glycol 3350 Powder 17 GM Packet PO SCH ×2 (08:36→09:30)
[2022-09-22] MEDS ORDERED: Warfarin 5 MG, Warfarin 2.5 MG PO ONE ×2 (16:00)
[2022-09-22] MEDS: Latanoprost 0.005% Ophth Soln 2.5 ML Bottle EYEBOTH SCH (20:01)
[2022-09-22] MEDS: Acetaminophen 500 MG Tab PO SCH (20:02)
[2022-09-23] MEDS: Pantoprazole 40 MG Tab.CR PO SCH (06:00)
[2022-09-23 06:46] LABS: INR 1.82 (1.00-1.24); PROTHROMBIN TIME 18.4 sec (9.0-11.1)
[2022-09-23] MEDS: Ferrous Sulfate 325 MG Tab PO SCH ×2 (08:21→17:16)
[2022-09-23] MEDS: Formoterol/Mometasone 200-5 MCG 8.8 GM Inhaler IH SCH ×2 (08:22→20:28)
[2022-09-23] MEDS: Hypromellose 0.3% Ophth Soln 15 ML Bottle EYEBOTH SCH ×4 (08:22→20:28)
[2022-09-23] MEDS: Aspirin 81 MG Tab.EC PO SCH (08:23)
[2022-09-23] MEDS: Dorzolamide 2% Ophth Soln 10 ML Bottle EYELF SCH ×2 (08:23→20:28)
[2022-09-23] MEDS: Magnesium Oxide 400 MG Tab PO SCH (08:23)
[2022-09-23] MEDS: Multivitamin Tab PO SCH (08:23)
[2022-09-23] MEDS: Zinc Sulfate 220 MG Cap PO SCH (08:24)
[2022-09-23] MEDS: Cyanocobalamin (Vitamin B12) 1,000 MCG Tab PO SCH (08:24)
[2022-09-23] MEDS: Polyethylene Glycol 3350 Powder 17 GM Packet PO SCH (08:25)
[2022-09-23] MEDS: Cetirizine 10 MG Tab PO SCH (08:25)
[2022-09-23] MEDS: Warfarin 5 MG Tab PO SCH (17:16)
[2022-09-23] MEDS: Latanoprost 0.005% Ophth Soln 2.5 ML Bottle EYEBOTH SCH (20:29)
[2022-09-23] MEDS: Acetaminophen 500 MG Tab PO SCH (20:29)
[2022-09-24] MEDS: Pantoprazole 40 MG Tab.CR PO SCH (06:36)
[2022-09-24 07:31] LABS: INR 1.88 (1.00-1.24); PROTHROMBIN TIME 19.1 sec (9.0-11.1)
[2022-09-24] MEDS: Ferrous Sulfate 325 MG Tab PO SCH ×3 (08:36→18:36)
[2022-09-24] MEDS: Formoterol/Mometasone 200-5 MCG 8.8 GM Inhaler IH SCH ×2 (08:36→20:52)
[2022-09-24] MEDS: Hypromellose 0.3% Ophth Soln 15 ML Bottle EYEBOTH SCH ×4 (08:36→20:50)
[2022-09-24] MEDS: Aspirin 81 MG Tab.EC PO SCH (08:37)
[2022-09-24] MEDS: Magnesium Oxide 400 MG Tab PO SCH (08:37)
[2022-09-24] MEDS: Multivitamin Tab PO SCH (08:37)
[2022-09-24] MEDS: Polyethylene Glycol 3350 Powder 17 GM Packet PO SCH (08:37)
[2022-09-24] MEDS: Cyanocobalamin (Vitamin B12) 1,000 MCG Tab PO SCH (08:38)
[2022-09-24] MEDS: Dorzolamide 2% Ophth Soln 10 ML Bottle EYELF SCH ×2 (08:38→20:51)
[2022-09-24] MEDS: Cetirizine 10 MG Tab PO SCH (08:39)
[2022-09-24] MEDS: Zinc Sulfate 220 MG Cap PO SCH (08:39)
[2022-09-24] MEDS: Warfarin 5 MG Tab PO SCH (16:47)
[2022-09-24] MEDS: Latanoprost 0.005% Ophth Soln 2.5 ML Bottle EYEBOTH SCH (20:51)
[2022-09-24] MEDS: Acetaminophen 500 MG Tab PO SCH (20:51)
[2022-09-25] MEDS: Pantoprazole 40 MG Tab.CR PO SCH (06:00)
[2022-09-25 07:02] LABS: INR 1.93 (1.00-1.24); PROTHROMBIN TIME 19.5 sec (9.0-11.1)
[2022-09-25] MEDS: Ferrous Sulfate 325 MG Tab PO SCH ×2 (08:55→17:50)
[2022-09-25] MEDS: Formoterol/Mometasone 200-5 MCG 8.8 GM Inhaler IH SCH ×2 (08:56→21:26)
[2022-09-25] MEDS: Polyethylene Glycol 3350 Powder 17 GM Packet PO SCH (08:56)
[2022-09-25] MEDS: Hypromellose 0.3% Ophth Soln 15 ML Bottle EYEBOTH SCH ×4 (08:56→21:26)
[2022-09-25] MEDS: Aspirin 81 MG Tab.EC PO SCH (08:59)
[2022-09-25] MEDS: Magnesium Oxide 400 MG Tab PO SCH (08:59)
[2022-09-25] MEDS: Multivitamin Tab PO SCH (08:59)
[2022-09-25] MEDS: Zinc Sulfate 220 MG Cap PO SCH (09:00)
[2022-09-25] MEDS: Cyanocobalamin (Vitamin B12) 1,000 MCG Tab PO SCH (09:00)
[2022-09-25] MEDS: Cetirizine 10 MG Tab PO SCH (09:00)
[2022-09-25] MEDS: Dorzolamide 2% Ophth Soln 10 ML Bottle EYELF SCH ×2 (09:00→21:27)
[2022-09-25] MEDS ORDERED: Warfarin 5 MG, Warfarin 2.5 MG PO ONE ×2 (16:00)
[2022-09-25] MEDS: Latanoprost 0.005% Ophth Soln 2.5 ML Bottle EYEBOTH SCH (21:27)
[2022-09-25] MEDS: Acetaminophen 500 MG Tab PO SCH (21:27)
[2022-09-26 06:23] LABS: INR 1.94 (1.00-1.24); PROTHROMBIN TIME 19.6 sec (9.0-11.1)
[2022-09-26] MEDS: Pantoprazole 40 MG Tab.CR PO SCH (06:34)
[2022-09-26] MEDS: Ferrous Sulfate 325 MG Tab PO SCH ×2 (09:27→17:53)
[2022-09-26] MEDS: Formoterol/Mometasone 200-5 MCG 8.8 GM Inhaler IH SCH ×2 (09:27→22:11)
[2022-09-26] MEDS: Aspirin 81 MG Tab.EC PO SCH (09:28)
[2022-09-26] MEDS: Hypromellose 0.3% Ophth Soln 15 ML Bottle EYEBOTH SCH ×4 (09:28→22:11)
[2022-09-26] MEDS: Magnesium Oxide 400 MG Tab PO SCH (09:28)
[2022-09-26] MEDS: Multivitamin Tab PO SCH (09:29)
[2022-09-26] MEDS: Polyethylene Glycol 3350 Powder 17 GM Packet PO SCH ×2 (09:29→09:43)
[2022-09-26] MEDS: Zinc Sulfate 220 MG Cap PO SCH (09:30)
[2022-09-26] MEDS: Cetirizine 10 MG Tab PO SCH (09:30)
[2022-09-26] MEDS: Dorzolamide 2% Ophth Soln 10 ML Bottle EYELF SCH ×2 (09:30→22:11)
[2022-09-26] MEDS: Cyanocobalamin (Vitamin B12) 1,000 MCG Tab PO SCH (09:30)
[2022-09-26] MEDS ORDERED: Warfarin 5 MG, Warfarin 2.5 MG PO ONE ×2 (16:00)
[2022-09-26] MEDS: Acetaminophen 500 MG Tab PO SCH (22:11)
[2022-09-26] MEDS: Latanoprost 0.005% Ophth Soln 2.5 ML Bottle EYEBOTH SCH (22:11)
[2022-09-27] MEDS: Pantoprazole 40 MG Tab.CR PO SCH (06:19)
[2022-09-27 06:52] LABS: INR 2.37 (1.00-1.24); PROTHROMBIN TIME 23.8 sec (9.0-11.1)
[2022-09-27] MEDS: Aspirin 81 MG Tab.EC PO SCH (08:41)
[2022-09-27] MEDS: Ferrous Sulfate 325 MG Tab PO SCH ×2 (08:41→17:53)
[2022-09-27] MEDS: Hypromellose 0.3% Ophth Soln 15 ML Bottle EYEBOTH SCH ×4 (08:41→21:46)
[2022-09-27] MEDS: Formoterol/Mometasone 200-5 MCG 8.8 GM Inhaler IH SCH ×2 (08:41→21:46)
[2022-09-27] MEDS: Dorzolamide 2% Ophth Soln 10 ML Bottle EYELF SCH ×2 (08:42→21:47)
[2022-09-27] MEDS: Polyethylene Glycol 3350 Powder 17 GM Packet PO SCH (08:42)
[2022-09-27] MEDS: Cyanocobalamin (Vitamin B12) 1,000 MCG Tab PO SCH (08:42)
[2022-09-27] MEDS: Multivitamin Tab PO SCH (08:42)
[2022-09-27] MEDS: Zinc Sulfate 220 MG Cap PO SCH (08:42)
[2022-09-27] MEDS: Magnesium Oxide 400 MG Tab PO SCH (08:42)
[2022-09-27] MEDS: Cetirizine 10 MG Tab PO SCH (08:42)
[2022-09-27] MEDS ORDERED: Warfarin 5 MG Tab PO ONE (16:00)
[2022-09-27] MEDS ORDERED: Warfarin 2.5 MG Tab PO SCH (16:00)
[2022-09-27] MEDS: Acetaminophen 500 MG Tab PO SCH (21:47)
[2022-09-27] MEDS: Latanoprost 0.005% Ophth Soln 2.5 ML Bottle EYEBOTH SCH (21:47)
[2022-09-28] MEDS: Pantoprazole 40 MG Tab.CR PO SCH (06:16)
[2022-09-28] MEDS: Formoterol/Mometasone 200-5 MCG 8.8 GM Inhaler IH SCH ×2 (08:01→20:57)
[2022-09-28] MEDS: Ferrous Sulfate 325 MG Tab PO SCH ×2 (08:01→17:50)
[2022-09-28] MEDS: Hypromellose 0.3% Ophth Soln 15 ML Bottle EYEBOTH SCH ×4 (08:01→20:57)
[2022-09-28] MEDS: Polyethylene Glycol 3350 Powder 17 GM Packet PO SCH (08:02)
[2022-09-28] MEDS: Aspirin 81 MG Tab.EC PO SCH (08:02)
[2022-09-28] MEDS: Magnesium Oxide 400 MG Tab PO SCH (08:02)
[2022-09-28] MEDS: Multivitamin Tab PO SCH (08:03)
[2022-09-28] MEDS: Cyanocobalamin (Vitamin B12) 1,000 MCG Tab PO SCH (08:03)
[2022-09-28] MEDS: Dorzolamide 2% Ophth Soln 10 ML Bottle EYELF SCH ×2 (08:03→20:57)
[2022-09-28] MEDS: Zinc Sulfate 220 MG Cap PO SCH (08:03)
[2022-09-28] MEDS: Cetirizine 10 MG Tab PO SCH (08:05)
[2022-09-28 08:44] LABS: INR 2.34 (1.00-1.24); PROTHROMBIN TIME 23.5 sec (9.0-11.1)
[2022-09-28] MEDS: Losartan 25 MG Tab PO SCH (09:49)
[2022-09-28] MEDS ORDERED: Warfarin 5 MG Tab PO ONE (16:00)
[2022-09-28] MEDS: Latanoprost 0.005% Ophth Soln 2.5 ML Bottle EYEBOTH SCH (20:58)
[2022-09-28] MEDS: Acetaminophen 500 MG Tab PO SCH (21:01)
[2022-09-29 06:32] LABS: INR 2.16 (1.00-1.24); PROTHROMBIN TIME 21.7 sec (9.0-11.1)
[2022-09-29] MEDS: Pantoprazole 40 MG Tab.CR PO SCH (07:28)
[2022-09-29] MEDS: Ferrous Sulfate 325 MG Tab PO SCH (08:46)
[2022-09-29] MEDS: Losartan 25 MG Tab PO SCH (08:49)
[2022-09-29] MEDS: Formoterol/Mometasone 200-5 MCG 8.8 GM Inhaler IH SCH (08:49)
[2022-09-29] MEDS: Hypromellose 0.3% Ophth Soln 15 ML Bottle EYEBOTH SCH ×2 (08:49→12:34)
[2022-09-29] MEDS: Dorzolamide 2% Ophth Soln 10 ML Bottle EYELF SCH (08:51)
[2022-09-29] MEDS: Magnesium Oxide 400 MG Tab PO SCH (08:51)
[2022-09-29] MEDS: Cyanocobalamin (Vitamin B12) 1,000 MCG Tab PO SCH (08:51)
[2022-09-29] MEDS: Multivitamin Tab PO SCH (08:51)
[2022-09-29] MEDS: Aspirin 81 MG Tab.EC PO SCH (08:51)
[2022-09-29] MEDS: Polyethylene Glycol 3350 Powder 17 GM Packet PO SCH (08:52)
[2022-09-29] MEDS: Zinc Sulfate 220 MG Cap PO SCH (08:52)
[2022-09-29] MEDS: Cetirizine 10 MG Tab PO SCH (08:52)
[2022-09-29 12:31] VITALS: BP 173/82; PULSE 86
== END 2022-09-29 12:45 | disposition home health service (06) | DRG 948 ==
LOC: FB.MS 13:04
PROVIDERS: ADMIT Family Medicine; ATTEND Family Medicine
DX: R53.1 Weakness (principal); I50.32 Chronic diastolic (congestive) heart failure; I25.10 Atherosclerotic heart disease of native coronary artery without angina pectoris; H40.9 Unspecified glaucoma; K21.9 Gastro-esophageal reflux disease without esophagitis; G43.909 Migraine, unspecified, not intractable, without status migrainosus; G70.00 Myasthenia gravis without (acute) exacerbation; M34.1 CR(E)ST syndrome; I11.0 Hypertensive heart disease with heart failure; I48.0 Paroxysmal atrial fibrillation; I27.20 Pulmonary hypertension, unspecified; K22.2 Esophageal obstruction; D50.9 Iron deficiency anemia, unspecified; J45.909 Unspecified asthma, uncomplicated; E78.5 Hyperlipidemia, unspecified; Z79.1 Long term (current) use of non-steroidal anti-inflammatories (NSAID); Z79.52 Long term (current) use of systemic steroids; Z79.82 Long term (current) use of aspirin; Z79.899 Other long term (current) drug therapy; Z79.01 Long term (current) use of anticoagulants; Z88.8 Allergy status to other drugs, medicaments and biological substances; Z88.1 Allergy status to other antibiotic agents; Z95.2 Presence of prosthetic heart valve; Z87.01 Personal history of pneumonia (recurrent); Z86.010 Personal history of colon polyps; Z87.19 Personal history of other diseases of the digestive system; Z98.42 Cataract extraction status, left eye; Z98.41 Cataract extraction status, right eye; Z90.89 Acquired absence of other organs; Z98.890 Other specified postprocedural states; Z90.49 Acquired absence of other specified parts of digestive tract; Z87.891 Personal history of nicotine dependence
CPT/HCPCS: 36415; 85610; 97110-GO; 97112-GP; 97116-GP; 97161-GP; 97165-GO; 97530-GO; 97530-GP; 97535-GO; A9270-GY

== ENCOUNTER 2022-10-12 11:09 | Inpatient (IN) | payer MEDICARE, OTHER ==
[2022-10-12] MEDS ORDERED: Polyethylene Glycol 3350 Powder 17 GM Packet PO PRN (14:15)
[2022-10-12] MEDS ORDERED: Albuterol 8 GM Inhaler INH PRN (14:15)
[2022-10-12] MEDS ORDERED: Warfarin Sliding Scale PO SCH (14:19)
[2022-10-12 14:46] LABS: INR 2.57 (1.00-1.24); PROTHROMBIN TIME 25.7 sec (9.0-11.1)
[2022-10-12] MEDS ORDERED: Warfarin 5 MG Tab PO ONE (16:00)
[2022-10-12] MEDS: Ferrous Sulfate 325 MG Tab PO SCH (19:44)
[2022-10-12] MEDS: Formoterol/Mometasone 200-5 MCG 8.8 GM Inhaler IH SCH (20:13)
[2022-10-12] MEDS: Latanoprost 0.005% Ophth Soln 2.5 ML Bottle EYEBOTH SCH (20:14)
[2022-10-12] MEDS: Dorzolamide 2% Ophth Soln 10 ML Bottle EYELF SCH (20:14)
[2022-10-13] MEDS: Pantoprazole 40 MG Tab.CR PO SCH (06:08)
[2022-10-13 06:48] LABS: INR 2.61 (1.00-1.24); PROTHROMBIN TIME 26.2 sec (9.0-11.1)
[2022-10-13] MEDS: Formoterol/Mometasone 200-5 MCG 8.8 GM Inhaler IH SCH ×2 (09:11→20:03)
[2022-10-13] MEDS: Ferrous Sulfate 325 MG Tab PO SCH ×2 (09:11→20:02)
[2022-10-13] MEDS: Cyanocobalamin (Vitamin B12) 1,000 MCG Tab PO SCH (09:13)
[2022-10-13] MEDS: Dorzolamide 2% Ophth Soln 10 ML Bottle EYELF SCH ×2 (09:13→20:03)
[2022-10-13] MEDS: Aspirin 81 MG Tab.EC PO SCH (09:13)
[2022-10-13] MEDS: Multivitamin Tab PO SCH (09:14)
[2022-10-13] MEDS: Warfarin 5 MG, Warfarin 2.5 MG PO SCH ×2 (16:37)
[2022-10-13] MEDS: Latanoprost 0.005% Ophth Soln 2.5 ML Bottle EYEBOTH SCH (20:04)
[2022-10-14] MEDS: Pantoprazole 40 MG Tab.CR PO SCH (05:52)
[2022-10-14] MEDS: Ferrous Sulfate 325 MG Tab PO SCH ×2 (07:46→17:17)
[2022-10-14] MEDS: Multivitamin Tab PO SCH (07:59)
[2022-10-14] MEDS: Aspirin 81 MG Tab.EC PO SCH (07:59)
[2022-10-14] MEDS: Dorzolamide 2% Ophth Soln 10 ML Bottle EYELF SCH ×2 (08:00→20:06)
[2022-10-14] MEDS: Formoterol/Mometasone 200-5 MCG 8.8 GM Inhaler IH SCH ×2 (08:00→20:08)
[2022-10-14] MEDS: Cyanocobalamin (Vitamin B12) 1,000 MCG Tab PO SCH (08:00)
[2022-10-14] MEDS ORDERED: Ondansetron 4 MG Tab.DIS PO PRN (14:33)
[2022-10-14] MEDS: Warfarin 5 MG Tab PO SCH (17:16)
[2022-10-14] MEDS: Latanoprost 0.005% Ophth Soln 2.5 ML Bottle EYEBOTH SCH (20:08)
[2022-10-15] MEDS: Pantoprazole 40 MG Tab.CR PO SCH (05:48)
[2022-10-15 07:19] LABS: INR 2.31 (1.00-1.24); PROTHROMBIN TIME 23.2 sec (9.0-11.1)
[2022-10-15] MEDS: Ferrous Sulfate 325 MG Tab PO SCH ×2 (09:05→17:24)
[2022-10-15] MEDS: Formoterol/Mometasone 200-5 MCG 8.8 GM Inhaler IH SCH ×2 (09:06→20:05)
[2022-10-15] MEDS: Aspirin 81 MG Tab.EC PO SCH (09:07)
[2022-10-15] MEDS: Cyanocobalamin (Vitamin B12) 1,000 MCG Tab PO SCH (09:07)
[2022-10-15] MEDS: Multivitamin Tab PO SCH (09:07)
[2022-10-15] MEDS: Dorzolamide 2% Ophth Soln 10 ML Bottle EYELF SCH ×2 (09:08→20:04)
[2022-10-15] MEDS: Warfarin 5 MG Tab PO SCH (17:24)
[2022-10-15] MEDS: Latanoprost 0.005% Ophth Soln 2.5 ML Bottle EYEBOTH SCH (20:07)
[2022-10-16] MEDS: Pantoprazole 40 MG Tab.CR PO SCH (05:43)
[2022-10-16] MEDS: Aspirin 81 MG Tab.EC PO SCH (08:33)
[2022-10-16] MEDS: Ferrous Sulfate 325 MG Tab PO SCH ×2 (08:33→21:16)
[2022-10-16] MEDS: Formoterol/Mometasone 200-5 MCG 8.8 GM Inhaler IH SCH ×2 (08:33→21:16)
[2022-10-16] MEDS: Cyanocobalamin (Vitamin B12) 1,000 MCG Tab PO SCH (08:34)
[2022-10-16] MEDS: Dorzolamide 2% Ophth Soln 10 ML Bottle EYELF SCH ×2 (08:34→21:16)
[2022-10-16] MEDS: Multivitamin Tab PO SCH (08:34)
[2022-10-16] MEDS: Warfarin 5 MG, Warfarin 2.5 MG PO SCH ×2 (15:59)
[2022-10-16] MEDS: amLODIPine 5 MG Tab PO SCH (16:21)
[2022-10-16] MEDS: Latanoprost 0.005% Ophth Soln 2.5 ML Bottle EYEBOTH SCH (21:21)
[2022-10-17] MEDS: Pantoprazole 40 MG Tab.CR PO SCH (05:55)
[2022-10-17 06:52] LABS: INR 2.33 (1.00-1.24); PROTHROMBIN TIME 23.4 sec (9.0-11.1)
[2022-10-17] MEDS: Aspirin 81 MG Tab.EC PO SCH (08:01)
[2022-10-17] MEDS: Dorzolamide 2% Ophth Soln 10 ML Bottle EYELF SCH ×2 (08:01→20:10)
[2022-10-17] MEDS: Formoterol/Mometasone 200-5 MCG 8.8 GM Inhaler IH SCH ×2 (08:01→20:11)
[2022-10-17] MEDS: Multivitamin Tab PO SCH (08:01)
[2022-10-17] MEDS: Ferrous Sulfate 325 MG Tab PO SCH ×2 (08:01→18:13)
[2022-10-17] MEDS: Cyanocobalamin (Vitamin B12) 1,000 MCG Tab PO SCH (08:02)
[2022-10-17] MEDS: amLODIPine 5 MG Tab PO SCH (08:03)
[2022-10-17] MEDS: Warfarin 5 MG Tab PO SCH (18:13)
[2022-10-17] MEDS: Latanoprost 0.005% Ophth Soln 2.5 ML Bottle EYEBOTH SCH (20:11)
[2022-10-18] MEDS: Pantoprazole 40 MG Tab.CR PO SCH (06:36)
[2022-10-18] MEDS: amLODIPine 5 MG Tab PO SCH (08:38)
[2022-10-18] MEDS: Cyanocobalamin (Vitamin B12) 1,000 MCG Tab PO SCH (08:38)
[2022-10-18] MEDS: Multivitamin Tab PO SCH (08:39)
[2022-10-18] MEDS: Dorzolamide 2% Ophth Soln 10 ML Bottle EYELF SCH ×2 (08:39→20:03)
[2022-10-18] MEDS: Ferrous Sulfate 325 MG Tab PO SCH ×2 (08:39→17:28)
[2022-10-18] MEDS: Aspirin 81 MG Tab.EC PO SCH (08:39)
[2022-10-18] MEDS: Formoterol/Mometasone 200-5 MCG 8.8 GM Inhaler IH SCH ×2 (08:39→20:03)
[2022-10-18] MEDS: Warfarin 5 MG, Warfarin 2.5 MG PO SCH ×2 (16:31)
[2022-10-18] MEDS: Latanoprost 0.005% Ophth Soln 2.5 ML Bottle EYEBOTH SCH (20:03)
[2022-10-19] MEDS: Pantoprazole 40 MG Tab.CR PO SCH (06:06)
[2022-10-19 06:53] LABS: INR 2.25 (1.00-1.24); PROTHROMBIN TIME 22.7 sec (9.0-11.1)
[2022-10-19] MEDS: Dorzolamide 2% Ophth Soln 10 ML Bottle EYELF SCH (08:36)
[2022-10-19] MEDS: Formoterol/Mometasone 200-5 MCG 8.8 GM Inhaler IH SCH (08:36)
[2022-10-19] MEDS: Aspirin 81 MG Tab.EC PO SCH (08:36)
[2022-10-19] MEDS: Ferrous Sulfate 325 MG Tab PO SCH (08:36)
[2022-10-19] MEDS: Multivitamin Tab PO SCH (08:37)
[2022-10-19] MEDS: Cyanocobalamin (Vitamin B12) 1,000 MCG Tab PO SCH (08:37)
[2022-10-19] MEDS: amLODIPine 5 MG Tab PO SCH (08:37)
[2022-10-19 15:26] VITALS: BP 140/62; PULSE 56
== END 2022-10-19 15:00 | disposition home or self-care (01) | DRG 948 ==
LOC: FB.MS 12:42
PROVIDERS: ADMIT Student in an Organized Health Care Education/Training Program; ATTEND Family Medicine
DX: R53.81 Other malaise (principal); R13.12 Dysphagia, oropharyngeal phase; I10 Essential (primary) hypertension; I48.0 Paroxysmal atrial fibrillation; E16.2 Hypoglycemia, unspecified; I27.20 Pulmonary hypertension, unspecified; I25.10 Atherosclerotic heart disease of native coronary artery without angina pectoris; G70.00 Myasthenia gravis without (acute) exacerbation; M19.90 Unspecified osteoarthritis, unspecified site; E78.5 Hyperlipidemia, unspecified; H18.519 Endothelial corneal dystrophy, unspecified eye; G52.3 Disorders of hypoglossal nerve; M19.91 Primary osteoarthritis, unspecified site; M85.80 Other specified disorders of bone density and structure, unspecified site; J45.909 Unspecified asthma, uncomplicated; H54.7 Unspecified visual loss; Z88.8 Allergy status to other drugs, medicaments and biological substances; H40.9 Unspecified glaucoma; K21.9 Gastro-esophageal reflux disease without esophagitis; Z79.01 Long term (current) use of anticoagulants; Z79.899 Other long term (current) drug therapy; Z91.041 Radiographic dye allergy status; Z95.4 Presence of other heart-valve replacement; Z86.010 Personal history of colon polyps; Z98.890 Other specified postprocedural states; Z90.89 Acquired absence of other organs; Z98.49 Cataract extraction status, unspecified eye; Z90.49 Acquired absence of other specified parts of digestive tract
CPT/HCPCS: 36415; 82947; 85610; 92526-GN; 92610-GN; 92611-GN; 97110-GO; 97112-GO; 97112-GP; 97161-GP; 97165-GO; 97530-GO; 97530-GP; 97535-GO; 99305; 99308; 99315; A9270-GY

== ENCOUNTER 2022-10-19 16:32 | Observation (INO) | payer MEDICARE, OTHER ==
[2022-10-19 17:28] LABS: BASOPHILS ABSOLUTE AUTO 0.1 x10-3/uL (0.0-0.1); BASOPHILS PERCENT AUTO 0.9 % (0.2-1.5); EOSINOPHILS ABSOLUTE AUTO 0.4 x10-3/uL (0.0-0.8); EOSINOPHILS PERCENT AUTO 5.1 % (0.6-8.1); HEMATOCRIT 32.1 % (34.2-48.2); HEMOGLOBIN 10.2 g/dL (11.4-15.5); LYMPHOCYTES ABSOLUTE AUTO 2.1 x10-3/uL (1.0-4.4); LYMPHOCYTES PERCENT AUTO 24.7 % (18.4-52.1); MEAN CORPUSCULAR HEMOGLOBIN 28.5 pg (23.9-33.9); MEAN CORPUSCULAR HGB CONC 31.8 g/dL (31.9-34.8); MEAN CORPUSCULAR VOLUME 89.7 fL (76.7-100.5); MONOCYTES ABSOLUTE AUTO 0.8 x10-3/uL (0.3-1.0); NEUTROPHILS ABSOLUTE AUTO 5.2 x10-3/uL (1.5-6.3); NEUTROPHILS PERCENT AUTO 60.3 % (30.8-76.2); PLATELET COUNT,PLT 285 x10(3)uL (151-488); RED BLOOD CELL COUNT 3.58 x10(6)uL (3.60-5.20); RED CELL DISTRIBUTION WIDTH 14.9 % (12.3-16.5); WHITE BLOOD CELL COUNT,WBC 8.6 x10-3/uL (3.0-10.3)
[2022-10-19 17:29] LABS: BLOOD UREA NITROGEN,BUN 32 mg/dL (7-18); BUN/CREATININE RATIO 21.3 (9-20); CARBON DIOXIDE,CO2 29 mmol/L (21-32); CHLORIDE,CL 104 mmol/L (100-110); CREATININE 1.5 mg/dL (0.55-1.02); ESTIMATED GFR 35 mL/min (>60); GLUCOSE RANDOM 108 mg/dL (80-116); POTASSIUM,K 4.7 mmol/L (3.5-5.3); SODIUM,NA 141 mmol/L (135-145)
[2022-10-19 17:35] LABS: A/G RATIO 0.9; ALANINE AMINOTRANSFERASE,ALT 16 U/L (12-36); ALBUMIN 3.3 g/dL (3.2-4.6); ALKALINE PHOSPHATASE 105 IU/L (56-112); ASPARTATE AMNIOTRANSFERASE,AST 15 IU/L (5-25); BILIRUBIN TOTAL 0.2 mg/dL (0.1-1.3); PROTEIN TOTAL,TP 6.9 g/dL (6.0-8.0)
[2022-10-19] MEDS ORDERED: Sennosides/Docusate Sodium 50-8.6 MG Tab PO PRN (19:47)
[2022-10-19] MEDS ORDERED: Sodium Chloride 0.9% 10 ML Syringe FLUSH PRN (19:47)
[2022-10-19] MEDS ORDERED: Acetaminophen 325 MG Tab PO PRN (19:47)
[2022-10-19] MEDS ORDERED: Ondansetron 4 MG/2 ML SDV IV PRN (19:47)
[2022-10-19] MEDS ORDERED: Polyethylene Glycol 3350 Powder 17 GM Packet PO PRN (19:59)
[2022-10-19] MEDS ORDERED: Albuterol 8 GM Inhaler INH PRN (19:59)
[2022-10-19] MEDS ORDERED: Warfarin 5 MG Tab PO SCH (20:00)
[2022-10-19] MEDS ORDERED: Sodium Chloride 0.9% 1,000 ML IV SCH (20:00)
[2022-10-19 20:24] LABS: INR 2.32 (1.00-1.24); PROTHROMBIN TIME 23.3 sec (9.0-11.1)
[2022-10-19] MEDS ORDERED: Non-Formulary Medication 1 Each (Fluticasone Propion/Salmeterol [Advair 250-50 Diskus] 1 E IH SCH (21:00)
[2022-10-19] MEDS ORDERED: Non-Formulary Medication 1 Each (Bimatoprost [Lumigan 0.01% Ophth Soln] 5 ML Bottle) EYEBOTH SCH (21:00)
[2022-10-19] MEDS ORDERED: Dorzolamide 2% Ophth Soln 10 ML Bottle EYELF SCH (21:00)
[2022-10-19] MEDS: traMADol 50 MG Tab PO SCH (22:01)
[2022-10-19 23:41] LABS: BILIRUBIN,URINE NEGATIVE (NEGATIVE); GLUCOSE,URINE NORMAL (NORMAL); KETONES,URINE NEGATIVE (NEGATIVE); LEUKOCYTE ESTERASE,URINE LARGE (NEGATIVE); NITRITE,URINE POSITIVE (NEGATIVE); OCCULT BLOOD,URINE MODERATE (NEGATIVE); PROTEIN,URINE NEGATIVE (NEGATIVE); UROBILINOGEN,URINE NORMAL (NEGATIVE)
[2022-10-19 23:52] LABS: APPEARANCE,URINE CLOUDY (CLEAR); BACTERIA,URINE MANY (NS); COLOR,URINE YELLOW (YELLOW); SQUAMOUS EPITHELIAL CELLS,UR FEW (NS,R,O); WBC,URINE >100 (0-5)
[2022-10-20] MEDS: Sulfamethoxazole/Trimethoprim 800-160 MG Tab PO SCH ×2 (00:50→09:27)
[2022-10-20] MEDS: traMADol 50 MG Tab PO SCH ×2 (01:02→09:26)
[2022-10-20 06:45] LABS: BLOOD UREA NITROGEN,BUN 31 mg/dL (7-18); BUN/CREATININE RATIO 28.2 (9-20); CALCIUM 8.8 mg/dL (8.6-10.2); CARBON DIOXIDE,CO2 27 mmol/L (21-32); CHLORIDE,CL 106 mmol/L (100-110); CREATININE 1.1 mg/dL (0.55-1.02); EST CRCL DRUG DOSING (CG) 34.05 mL/min; ESTIMATED GFR 50 mL/min (>60); GLUCOSE RANDOM 97 mg/dL (80-116); INR 1.99 (1.00-1.24); POTASSIUM,K 4.6 mmol/L (3.5-5.3); PROTHROMBIN TIME 20.1 sec (9.0-11.1); SODIUM,NA 140 mmol/L (135-145)
[2022-10-20] MEDS ORDERED: Non-Formulary Medication 1 Each (Ferrous Sulfate [Ferrous Sulfate] 324 MG Tablet.Dr) PO SCH (08:00)
[2022-10-20] MEDS ORDERED: Non-Formulary Medication 1 Each (Multivitamin [Multivitamins] 1 EACH Capsule) PO SCH (09:00)
[2022-10-20] MEDS ORDERED: Cyanocobalamin (Vitamin B12) 1,000 MCG Tab PO SCH (09:00)
[2022-10-20] MEDS ORDERED: Aspirin 81 MG Tab.EC PO SCH ×2 (09:00)
[2022-10-20] MEDS ORDERED: Pantoprazole 40 MG Tab.CR PO SCH (09:00)
[2022-10-20] MEDS ORDERED: amLODIPine 5 MG Tab PO SCH (09:30)
[2022-10-20] MEDS ORDERED: Warfarin Sliding Scale PO SCH (10:45)
[2022-10-20 11:24] VITALS: BP 150/69; PULSE 89
[2022-10-20] MEDS ORDERED: Warfarin 5 MG Tab PO SCH (19:59)
== END 2022-10-20 10:27 | disposition swing bed (61) ==
LOC: FB.ED 16:32 → FB.MS 19:47
PROVIDERS: ADMIT Emergency Medicine; ATTEND Family Medicine
DX: S52.502A Unspecified fracture of the lower end of left radius, initial encounter for closed fracture (principal); S22.070A Wedge compression fracture of T9-T10 vertebra, initial encounter for closed fracture; N30.01 Acute cystitis with hematuria; R26.2 Difficulty in walking, not elsewhere classified; I50.30 Unspecified diastolic (congestive) heart failure; I11.0 Hypertensive heart disease with heart failure; I25.10 Atherosclerotic heart disease of native coronary artery without angina pectoris; G70.00 Myasthenia gravis without (acute) exacerbation; D50.9 Iron deficiency anemia, unspecified; R13.10 Dysphagia, unspecified; R53.81 Other malaise; M34.1 CR(E)ST syndrome; J45.909 Unspecified asthma, uncomplicated; K21.9 Gastro-esophageal reflux disease without esophagitis; H18.519 Endothelial corneal dystrophy, unspecified eye; E78.5 Hyperlipidemia, unspecified; I27.20 Pulmonary hypertension, unspecified; I48.0 Paroxysmal atrial fibrillation; Z88.8 Allergy status to other drugs, medicaments and biological substances; Z87.81 Personal history of (healed) traumatic fracture; Z88.1 Allergy status to other antibiotic agents; Z79.899 Other long term (current) drug therapy; Z90.49 Acquired absence of other specified parts of digestive tract; Z87.891 Personal history of nicotine dependence; W10.8XXA Fall (on) (from) other stairs and steps, initial encounter
CPT/HCPCS: 36415; 72072; 72100; 73080; 73110; 73502; 80048; 80053; 81001; 85025; 85610; 87086; 87088; 87186; 93005; 97165; 97530; 97760; 99284; 99285; A9270; G0378; J3490; J7030

== ENCOUNTER 2022-10-20 10:24 | Inpatient (IN) | payer MEDICARE, OTHER ==
[2022-10-20] MEDS ORDERED: Polyethylene Glycol 3350 Powder 17 GM Packet PO PRN (12:48)
[2022-10-20] MEDS ORDERED: Albuterol 8 GM Inhaler INH PRN (12:59)
[2022-10-20] MEDS ORDERED: Acetaminophen 325 MG Tab PO PRN (12:59)
[2022-10-20] MEDS ORDERED: Warfarin 5 MG, Warfarin 2.5 MG PO SCH ×2 (16:00)
[2022-10-20] MEDS ORDERED: Warfarin Sliding Scale PO SCH (16:00)
[2022-10-20] MEDS ORDERED: Warfarin 5 MG Tab PO SCH (16:00)
[2022-10-20] MEDS: Ferrous Sulfate 325 MG Tab PO SCH (18:26)
[2022-10-20] MEDS: Latanoprost 0.005% Ophth Soln 2.5 ML Bottle EYEBOTH SCH (20:28)
[2022-10-20] MEDS: Dorzolamide 2% Ophth Soln 10 ML Bottle EYELF SCH (20:30)
[2022-10-20] MEDS: Formoterol/Mometasone 200-5 MCG 8.8 GM Inhaler IH SCH (20:31)
[2022-10-20] MEDS: Sulfamethoxazole/Trimethoprim 800-160 MG Tab PO SCH (20:32)
[2022-10-20] MEDS ORDERED: Prochlorperazine 10 MG/2 ML SDV IM STA (21:15)
[2022-10-20] MEDS ORDERED: amLODIPine 5 MG Tab PO ONE (21:54)
[2022-10-20 21:59] LABS: EOSINOPHILS ABSOLUTE AUTO 0.4 x10-3/uL (0.0-0.8); EOSINOPHILS PERCENT AUTO 3.5 % (0.6-8.1); HEMATOCRIT 30.8 % (34.2-48.2); HEMOGLOBIN 10.1 g/dL (11.4-15.5); LYMPHOCYTES ABSOLUTE AUTO 0.5 x10-3/uL (1.0-4.4); LYMPHOCYTES PERCENT AUTO 4.8 % (18.4-52.1); MEAN CORPUSCULAR HEMOGLOBIN 29.6 pg (23.9-33.9); MEAN CORPUSCULAR HGB CONC 32.7 g/dL (31.9-34.8); MEAN CORPUSCULAR VOLUME 90.6 fL (76.7-100.5); MONOCYTES ABSOLUTE AUTO 0.5 x10-3/uL (0.3-1.0); MONOCYTES PERCENT AUTO 5.1 % (4.4-15.7); NEUTROPHILS ABSOLUTE AUTO 9.1 x10-3/uL (1.5-6.3); NEUTROPHILS PERCENT AUTO 86.6 % (30.8-76.2); PLATELET COUNT,PLT 271 x10(3)uL (151-488); RED CELL DISTRIBUTION WIDTH 15.3 % (12.3-16.5); WHITE BLOOD CELL COUNT,WBC 10.5 x10-3/uL (3.0-10.3)
[2022-10-20 22:11] LABS: A/G RATIO 0.9; ALANINE AMINOTRANSFERASE,ALT 23 U/L (12-36); ALBUMIN 3.3 g/dL (3.2-4.6); ALKALINE PHOSPHATASE 169 IU/L (56-112); ASPARTATE AMNIOTRANSFERASE,AST 27 IU/L (5-25); BILIRUBIN TOTAL 0.3 mg/dL (0.1-1.3); BLOOD UREA NITROGEN,BUN 31 mg/dL (7-18); BUN/CREATININE RATIO 23.8 (9-20); CALCIUM 8.8 mg/dL (8.6-10.2); CARBON DIOXIDE,CO2 27 mmol/L (21-32); CHLORIDE,CL 104 mmol/L (100-110); CREATININE 1.3 mg/dL (0.55-1.02); EST CRCL DRUG DOSING (CG) 28.81 mL/min; ESTIMATED GFR 41 mL/min (>60); GLUCOSE RANDOM 127 mg/dL (80-116); POTASSIUM,K 4.4 mmol/L (3.5-5.3); SODIUM,NA 139 mmol/L (135-145)
[2022-10-20 22:17] LABS: PTT,PARTIAL THROMBOPLSTIN TIME 32.8 SECONDS (24.4-33.2)
[2022-10-20 22:19] LABS: INR 1.67 (1.00-1.24)
[2022-10-21 06:47] LABS: INR 1.96 (1.00-1.24); PROTHROMBIN TIME 19.8 sec (9.0-11.1)
[2022-10-21] MEDS: Sulfamethoxazole/Trimethoprim 800-160 MG Tab PO SCH (09:29)
[2022-10-21] MEDS: Sodium Chloride 0.9% 10 ML Syringe FLUSH PRN (09:38)
[2022-10-21] MEDS: Sodium Chloride 0.9% 1,000 ML IV SCH (09:39)
[2022-10-21] MEDS: Doxycycline 100 MG in Sodium Chloride 0.9% 100 ML IV SCH ×2 (09:39→20:57)
[2022-10-21 09:48] LABS: BLOOD UREA NITROGEN,BUN 28 mg/dL (7-18); BUN/CREATININE RATIO 21.5 (9-20); CALCIUM 9.1 mg/dL (8.6-10.2); CARBON DIOXIDE,CO2 26 mmol/L (21-32); CHLORIDE,CL 105 mmol/L (100-110); CREATININE 1.3 mg/dL (0.55-1.02); EST CRCL DRUG DOSING (CG) 28.81 mL/min; ESTIMATED GFR 41 mL/min (>60); GLUCOSE RANDOM 114 mg/dL (80-116); POTASSIUM,K 4.4 mmol/L (3.5-5.3); SODIUM,NA 140 mmol/L (135-145)
[2022-10-21] MEDS: Ferrous Sulfate 325 MG Tab PO SCH ×2 (09:50→17:44)
[2022-10-21] MEDS: Pantoprazole 40 MG Tab.CR PO SCH (09:50)
[2022-10-21 09:54] LABS: A/G RATIO 0.9; ALANINE AMINOTRANSFERASE,ALT 26 U/L (12-36); ALBUMIN 3.1 g/dL (3.2-4.6); ALKALINE PHOSPHATASE 147 IU/L (56-112); ASPARTATE AMNIOTRANSFERASE,AST 28 IU/L (5-25); BILIRUBIN TOTAL 0.4 mg/dL (0.1-1.3); PROTEIN TOTAL,TP 6.5 g/dL (6.0-8.0)
[2022-10-21] MEDS: Aspirin 81 MG Tab.EC PO SCH (09:54)
[2022-10-21] MEDS: Formoterol/Mometasone 200-5 MCG 8.8 GM Inhaler IH SCH ×2 (09:54→20:46)
[2022-10-21 09:55] LABS: HEMATOCRIT 29.3 % (34.2-48.2); HEMOGLOBIN 9.8 g/dL (11.4-15.5); MEAN CORPUSCULAR HEMOGLOBIN 29.9 pg (23.9-33.9); MEAN CORPUSCULAR HGB CONC 33.3 g/dL (31.9-34.8); MEAN PLATELET VOLUME 8.5 fL (7.1-12.4); PLATELET COUNT,PLT 235 x10(3)uL (151-488); RED BLOOD CELL COUNT 3.26 x10(6)uL (3.60-5.20); RED CELL DISTRIBUTION WIDTH 14.5 % (12.3-16.5); WHITE BLOOD CELL COUNT,WBC 17.6 x10-3/uL (3.0-10.3)
[2022-10-21] MEDS: Dorzolamide 2% Ophth Soln 10 ML Bottle EYELF SCH ×2 (09:56→20:46)
[2022-10-21] MEDS: Multivitamin Tab PO SCH (09:56)
[2022-10-21] MEDS: Cyanocobalamin (Vitamin B12) 1,000 MCG Tab PO SCH (09:57)
[2022-10-21] MEDS: amLODIPine 2.5 MG Tab PO SCH (09:57)
[2022-10-21 10:06] LABS: BAND PERCENT MAN 4 % (0-6); LYMPHOCYTES PERCENT MAN 5 % (13-37); MONOCYTES PERCENT MAN 4 % (4-12); SEG NEUTROPHILS PERCENT MAN 87 % (46-82)
[2022-10-21] MEDS: Warfarin 5 MG Tab PO SCH (15:58)
[2022-10-21] MEDS: Latanoprost 0.005% Ophth Soln 2.5 ML Bottle EYEBOTH SCH (20:48)
[2022-10-21] MEDS: Acetaminophen 325 MG Tab PO SCH (20:56)
[2022-10-22] MEDS: Sodium Chloride 0.9% 1,000 ML IV SCH (00:22)
[2022-10-22 06:39] LABS: HEMATOCRIT 24.6 % (34.2-48.2); HEMOGLOBIN 7.9 g/dL (11.4-15.5); MEAN CORPUSCULAR HEMOGLOBIN 28.8 pg (23.9-33.9); MEAN CORPUSCULAR HGB CONC 32.1 g/dL (31.9-34.8); MEAN CORPUSCULAR VOLUME 89.6 fL (76.7-100.5); MEAN PLATELET VOLUME 7.9 fL (7.1-12.4); PLATELET COUNT,PLT 158 x10(3)uL (151-488); RED BLOOD CELL COUNT 2.74 x10(6)uL (3.60-5.20); RED CELL DISTRIBUTION WIDTH 15.1 % (12.3-16.5); WHITE BLOOD CELL COUNT,WBC 13.1 x10-3/uL (3.0-10.3)
[2022-10-22] MEDS: Pantoprazole 40 MG Tab.CR PO SCH (06:44)
[2022-10-22 06:51] LABS: BLOOD UREA NITROGEN,BUN 23 mg/dL (7-18); BUN/CREATININE RATIO 20.9 (9-20); CALCIUM 8.5 mg/dL (8.6-10.2); CARBON DIOXIDE,CO2 23 mmol/L (21-32); CHLORIDE,CL 106 mmol/L (100-110); CREATININE 1.1 mg/dL (0.55-1.02); EST CRCL DRUG DOSING (CG) 34.05 mL/min; ESTIMATED GFR 50 mL/min (>60); GLUCOSE RANDOM 105 mg/dL (80-116); POTASSIUM,K 4.1 mmol/L (3.5-5.3); SODIUM,NA 139 mmol/L (135-145)
[2022-10-22 07:16] LABS: BAND PERCENT MAN 7 % (0-6); EOSINOPHILS PERCENT MAN 3 % (0-5); LYMPHOCYTES PERCENT MAN 8 % (13-37); MONOCYTES PERCENT MAN 4 % (4-12); SEG NEUTROPHILS PERCENT MAN 78 % (46-82)
[2022-10-22] MEDS: Formoterol/Mometasone 200-5 MCG 8.8 GM Inhaler IH SCH ×2 (08:29→20:28)
[2022-10-22] MEDS: Ferrous Sulfate 325 MG Tab PO SCH ×2 (08:29→18:25)
[2022-10-22] MEDS: Cyanocobalamin (Vitamin B12) 1,000 MCG Tab PO SCH (08:29)
[2022-10-22] MEDS: Aspirin 81 MG Tab.EC PO SCH (08:29)
[2022-10-22] MEDS: Multivitamin Tab PO SCH (08:31)
[2022-10-22] MEDS: Dorzolamide 2% Ophth Soln 10 ML Bottle EYELF SCH ×2 (08:31→20:28)
[2022-10-22] MEDS: amLODIPine 2.5 MG Tab PO SCH (08:31)
[2022-10-22] MEDS ORDERED: cefTRIAXone 1 GM Vial IVPUSH SCH (09:30)
[2022-10-22] MEDS: Acetaminophen 325 MG Tab PO SCH ×3 (10:33→20:30)
[2022-10-22] MEDS: Doxycycline 100 MG in Sodium Chloride 0.9% 100 ML IV SCH ×2 (10:34→20:32)
[2022-10-22 13:11] LABS: APPEARANCE,URINE CLEAR (CLEAR); BILIRUBIN,URINE NEGATIVE (NEGATIVE); COLOR,URINE YELLOW (YELLOW); GLUCOSE,URINE NORMAL (NORMAL); KETONES,URINE NEGATIVE (NEGATIVE); LEUKOCYTE ESTERASE,URINE NEGATIVE (NEGATIVE); NITRITE,URINE NEGATIVE (NEGATIVE); OCCULT BLOOD,URINE NEGATIVE (NEGATIVE); PROTEIN,URINE NEGATIVE (NEGATIVE); SQUAMOUS EPITHELIAL CELLS,UR FEW (NS,R,O); UROBILINOGEN,URINE NORMAL (NEGATIVE); WBC,URINE 0-5 (0-5)
[2022-10-22 13:12] LABS: BACTERIA,URINE FEW (NS)
[2022-10-22] MEDS: Warfarin 5 MG Tab PO SCH (15:27)
[2022-10-22] MEDS: Latanoprost 0.005% Ophth Soln 2.5 ML Bottle EYEBOTH SCH (20:29)
[2022-10-22] MEDS: Sodium Chloride 0.9% 10 ML Syringe FLUSH PRN (20:37)
[2022-10-23] MEDS: Pantoprazole 40 MG Tab.CR PO SCH ×2 (05:22→06:52)
[2022-10-23 06:52] LABS: BASOPHILS PERCENT AUTO 0.2 % (0.2-1.5); EOSINOPHILS ABSOLUTE AUTO 0.6 x10-3/uL (0.0-0.8); EOSINOPHILS PERCENT AUTO 5.6 % (0.6-8.1); HEMATOCRIT 23.9 % (34.2-48.2); LYMPHOCYTES ABSOLUTE AUTO 0.5 x10-3/uL (1.0-4.4); LYMPHOCYTES PERCENT AUTO 4.4 % (18.4-52.1); MEAN CORPUSCULAR HEMOGLOBIN 29.7 pg (23.9-33.9); MEAN CORPUSCULAR HGB CONC 33.3 g/dL (31.9-34.8); MEAN CORPUSCULAR VOLUME 89.1 fL (76.7-100.5); MEAN PLATELET VOLUME 8.3 fL (7.1-12.4); MONOCYTES ABSOLUTE AUTO 0.4 x10-3/uL (0.3-1.0); NEUTROPHILS ABSOLUTE AUTO 9.3 x10-3/uL (1.5-6.3); NEUTROPHILS PERCENT AUTO 85.8 % (30.8-76.2); PLATELET COUNT,PLT 197 x10(3)uL (151-488); RED BLOOD CELL COUNT 2.68 x10(6)uL (3.60-5.20); RED CELL DISTRIBUTION WIDTH 15.2 % (12.3-16.5); WHITE BLOOD CELL COUNT,WBC 10.9 x10-3/uL (3.0-10.3)
[2022-10-23 07:00] LABS: BLOOD UREA NITROGEN,BUN 19 mg/dL (7-18); BUN/CREATININE RATIO 23.8 (9-20); CALCIUM 8.7 mg/dL (8.6-10.2); CARBON DIOXIDE,CO2 25 mmol/L (21-32); CHLORIDE,CL 108 mmol/L (100-110); CREATININE 0.8 mg/dL (0.55-1.02); EST CRCL DRUG DOSING (CG) 46.82 mL/min; ESTIMATED GFR 74 mL/min (>60); GLUCOSE RANDOM 90 mg/dL (80-116); POTASSIUM,K 3.7 mmol/L (3.5-5.3); SODIUM,NA 140 mmol/L (135-145)
[2022-10-23 07:13] LABS: INR 2.78 (1.00-1.24); PROTHROMBIN TIME 27.8 sec (9.0-11.1)
[2022-10-23] MEDS: Acetaminophen 325 MG Tab PO SCH ×3 (08:42→20:19)
[2022-10-23] MEDS: Ferrous Sulfate 325 MG Tab PO SCH ×2 (08:42→17:30)
[2022-10-23] MEDS: Cyanocobalamin (Vitamin B12) 1,000 MCG Tab PO SCH (08:42)
[2022-10-23] MEDS: Aspirin 81 MG Tab.EC PO SCH (08:42)
[2022-10-23] MEDS: Formoterol/Mometasone 200-5 MCG 8.8 GM Inhaler IH SCH ×2 (08:42→20:18)
[2022-10-23] MEDS: Dorzolamide 2% Ophth Soln 10 ML Bottle EYELF SCH ×2 (08:43→20:18)
[2022-10-23] MEDS: Multivitamin Tab PO SCH (08:43)
[2022-10-23] MEDS: amLODIPine 2.5 MG Tab PO SCH (08:43)
[2022-10-23] MEDS: Polyethylene Glycol 3350 Powder 17 GM Packet PO SCH (09:22)
[2022-10-23] MEDS: Sennosides/Docusate Sodium 50-8.6 MG Tab PO SCH (09:22)
[2022-10-23] MEDS: Doxycycline 100 MG in Sodium Chloride 0.9% 100 ML IV SCH (09:37)
[2022-10-23] MEDS: Sodium Chloride 0.9% 10 ML Syringe FLUSH PRN (09:37)
[2022-10-23] MEDS ORDERED: Diltiazem IR 30 MG Tab PO PRN (14:51)
[2022-10-23] MEDS ORDERED: Warfarin 2.5 MG Tab PO ONE (16:00)
[2022-10-23] MEDS: Doxycycline 100 MG Tab PO SCH (20:18)
[2022-10-23] MEDS: Latanoprost 0.005% Ophth Soln 2.5 ML Bottle EYEBOTH SCH (20:18)
[2022-10-24] MEDS: Pantoprazole 40 MG Tab.CR PO SCH (06:01)
[2022-10-24 06:50] LABS: BASOPHILS PERCENT AUTO 0.4 % (0.2-1.5); EOSINOPHILS ABSOLUTE AUTO 0.6 x10-3/uL (0.0-0.8); EOSINOPHILS PERCENT AUTO 8.6 % (0.6-8.1); HEMATOCRIT 24.3 % (34.2-48.2); LYMPHOCYTES ABSOLUTE AUTO 0.8 x10-3/uL (1.0-4.4); LYMPHOCYTES PERCENT AUTO 11.9 % (18.4-52.1); MEAN CORPUSCULAR HEMOGLOBIN 29.3 pg (23.9-33.9); MEAN CORPUSCULAR HGB CONC 32.9 g/dL (31.9-34.8); MEAN CORPUSCULAR VOLUME 89.1 fL (76.7-100.5); MONOCYTES ABSOLUTE AUTO 0.4 x10-3/uL (0.3-1.0); MONOCYTES PERCENT AUTO 6.2 % (4.4-15.7); NEUTROPHILS ABSOLUTE AUTO 4.9 x10-3/uL (1.5-6.3); NEUTROPHILS PERCENT AUTO 72.9 % (30.8-76.2); PLATELET COUNT,PLT 206 x10(3)uL (151-488); RED BLOOD CELL COUNT 2.73 x10(6)uL (3.60-5.20); RED CELL DISTRIBUTION WIDTH 14.8 % (12.3-16.5); WHITE BLOOD CELL COUNT,WBC 6.8 x10-3/uL (3.0-10.3)
[2022-10-24 06:52] LABS: BLOOD UREA NITROGEN,BUN 20 mg/dL (7-18); CALCIUM 8.8 mg/dL (8.6-10.2); CARBON DIOXIDE,CO2 26 mmol/L (21-32); CHLORIDE,CL 108 mmol/L (100-110); CREATININE 0.8 mg/dL (0.55-1.02); EST CRCL DRUG DOSING (CG) 46.82 mL/min; ESTIMATED GFR 74 mL/min (>60); GLUCOSE RANDOM 88 mg/dL (80-116); POTASSIUM,K 3.8 mmol/L (3.5-5.3); SODIUM,NA 141 mmol/L (135-145)
[2022-10-24 06:54] LABS: INR 3.15 (1.00-1.24); PROTHROMBIN TIME 31.4 sec (9.0-11.1)
[2022-10-24] MEDS: Polyethylene Glycol 3350 Powder 17 GM Packet PO SCH (08:52)
[2022-10-24] MEDS: Formoterol/Mometasone 200-5 MCG 8.8 GM Inhaler IH SCH ×2 (08:53→21:05)
[2022-10-24] MEDS: Dorzolamide 2% Ophth Soln 10 ML Bottle EYELF SCH ×2 (08:53→21:05)
[2022-10-24] MEDS: Aspirin 81 MG Tab.EC PO SCH (08:53)
[2022-10-24] MEDS: Multivitamin Tab PO SCH (08:54)
[2022-10-24] MEDS: Acetaminophen 325 MG Tab PO SCH ×3 (08:54→21:07)
[2022-10-24] MEDS: Sennosides/Docusate Sodium 50-8.6 MG Tab PO SCH (08:54)
[2022-10-24] MEDS: Ferrous Sulfate 325 MG Tab PO SCH ×2 (08:54→17:28)
[2022-10-24] MEDS: Cyanocobalamin (Vitamin B12) 1,000 MCG Tab PO SCH (08:55)
[2022-10-24] MEDS: Doxycycline 100 MG Tab PO SCH ×2 (08:55→21:06)
[2022-10-24] MEDS ORDERED: Diltiazem 120 MG Cap.CD PO SCH (09:00)
[2022-10-24] MEDS: Latanoprost 0.005% Ophth Soln 2.5 ML Bottle EYEBOTH SCH (21:05)
[2022-10-25] MEDS: Pantoprazole 40 MG Tab.CR PO SCH (06:18)
[2022-10-25 07:00] LABS: INR 3.19 (1.00-1.24); PROTHROMBIN TIME 31.7 sec (9.0-11.1)
[2022-10-25] MEDS: Ferrous Sulfate 325 MG Tab PO SCH ×2 (08:16→17:57)
[2022-10-25] MEDS: Polyethylene Glycol 3350 Powder 17 GM Packet PO SCH (08:17)
[2022-10-25] MEDS: Aspirin 81 MG Tab.EC PO SCH (08:17)
[2022-10-25] MEDS: Formoterol/Mometasone 200-5 MCG 8.8 GM Inhaler IH SCH ×2 (08:17→20:48)
[2022-10-25] MEDS: Sennosides/Docusate Sodium 50-8.6 MG Tab PO SCH (08:17)
[2022-10-25] MEDS: Multivitamin Tab PO SCH (08:18)
[2022-10-25] MEDS: Dorzolamide 2% Ophth Soln 10 ML Bottle EYELF SCH ×2 (08:18→20:50)
[2022-10-25] MEDS: Acetaminophen 325 MG Tab PO SCH ×3 (08:19→20:52)
[2022-10-25] MEDS: Doxycycline 100 MG Tab PO SCH ×2 (08:20→20:52)
[2022-10-25] MEDS: Cyanocobalamin (Vitamin B12) 1,000 MCG Tab PO SCH (08:21)
[2022-10-25] MEDS ORDERED: Warfarin 2.5 MG Tab PO ONE (16:00)
[2022-10-25] MEDS: Latanoprost 0.005% Ophth Soln 2.5 ML Bottle EYEBOTH SCH (20:50)
[2022-10-26] MEDS: Pantoprazole 40 MG Tab.CR PO SCH (06:25)
[2022-10-26 07:07] LABS: BASOPHILS PERCENT AUTO 0.5 % (0.2-1.5); EOSINOPHILS ABSOLUTE AUTO 0.4 x10-3/uL (0.0-0.8); HEMATOCRIT 26.3 % (34.2-48.2); HEMOGLOBIN 8.6 g/dL (11.4-15.5); LYMPHOCYTES ABSOLUTE AUTO 1.7 x10-3/uL (1.0-4.4); MEAN CORPUSCULAR HEMOGLOBIN 28.8 pg (23.9-33.9); MEAN CORPUSCULAR HGB CONC 32.5 g/dL (31.9-34.8); MEAN CORPUSCULAR VOLUME 88.6 fL (76.7-100.5); MEAN PLATELET VOLUME 7.9 fL (7.1-12.4); MONOCYTES ABSOLUTE AUTO 0.3 x10-3/uL (0.3-1.0); MONOCYTES PERCENT AUTO 4.5 % (4.4-15.7); NEUTROPHILS ABSOLUTE AUTO 4.7 x10-3/uL (1.5-6.3); PLATELET COUNT,PLT 256 x10(3)uL (151-488); RED BLOOD CELL COUNT 2.97 x10(6)uL (3.60-5.20); RED CELL DISTRIBUTION WIDTH 15.5 % (12.3-16.5); WHITE BLOOD CELL COUNT,WBC 7.2 x10-3/uL (3.0-10.3)
[2022-10-26 07:11] LABS: BLOOD UREA NITROGEN,BUN 20 mg/dL (7-18); CALCIUM 8.8 mg/dL (8.6-10.2); CARBON DIOXIDE,CO2 26 mmol/L (21-32); CHLORIDE,CL 106 mmol/L (100-110); CREATININE 0.8 mg/dL (0.55-1.02); EST CRCL DRUG DOSING (CG) 46.82 mL/min; ESTIMATED GFR 74 mL/min (>60); GLUCOSE RANDOM 83 mg/dL (80-116); POTASSIUM,K 4.1 mmol/L (3.5-5.3); SODIUM,NA 139 mmol/L (135-145)
[2022-10-26 07:13] LABS: INR 2.5 (1.00-1.24)
[2022-10-26] MEDS: Polyethylene Glycol 3350 Powder 17 GM Packet PO SCH (08:17)
[2022-10-26] MEDS: Cyanocobalamin (Vitamin B12) 1,000 MCG Tab PO SCH (08:19)
[2022-10-26] MEDS: Aspirin 81 MG Tab.EC PO SCH (08:19)
[2022-10-26] MEDS: Dorzolamide 2% Ophth Soln 10 ML Bottle EYELF SCH ×2 (08:19→20:58)
[2022-10-26] MEDS: Multivitamin Tab PO SCH (08:19)
[2022-10-26] MEDS: Ferrous Sulfate 325 MG Tab PO SCH ×2 (08:19→17:12)
[2022-10-26] MEDS: Acetaminophen 325 MG Tab PO SCH ×3 (08:19→20:50)
[2022-10-26] MEDS: Formoterol/Mometasone 200-5 MCG 8.8 GM Inhaler IH SCH ×2 (08:19→20:49)
[2022-10-26] MEDS: Sennosides/Docusate Sodium 50-8.6 MG Tab PO SCH (08:19)
[2022-10-26] MEDS ORDERED: Warfarin 5 MG Tab PO ONE (16:00)
[2022-10-26] MEDS: Latanoprost 0.005% Ophth Soln 2.5 ML Bottle EYEBOTH SCH (20:50)
[2022-10-26] MEDS: levETIRAcetam 250 MG Tab PO SCH (20:56)
[2022-10-27] MEDS: Pantoprazole 40 MG Tab.CR PO SCH (06:14)
[2022-10-27 07:18] LABS: INR 2.12 (1.00-1.24); PROTHROMBIN TIME 21.3 sec (9.0-11.1)
[2022-10-27] MEDS: Polyethylene Glycol 3350 Powder 17 GM Packet PO SCH (08:10)
[2022-10-27] MEDS: Multivitamin Tab PO SCH (08:13)
[2022-10-27] MEDS: Sennosides/Docusate Sodium 50-8.6 MG Tab PO SCH (08:13)
[2022-10-27] MEDS: levETIRAcetam 250 MG Tab PO SCH ×2 (08:13→20:53)
[2022-10-27] MEDS: Cyanocobalamin (Vitamin B12) 1,000 MCG Tab PO SCH (08:13)
[2022-10-27] MEDS: Ferrous Sulfate 325 MG Tab PO SCH ×2 (08:13→17:56)
[2022-10-27] MEDS: Aspirin 81 MG Tab.EC PO SCH (08:13)
[2022-10-27] MEDS: Acetaminophen 325 MG Tab PO SCH ×3 (08:13→20:54)
[2022-10-27] MEDS: Formoterol/Mometasone 200-5 MCG 8.8 GM Inhaler IH SCH ×2 (08:14→20:52)
[2022-10-27] MEDS: Dorzolamide 2% Ophth Soln 10 ML Bottle EYELF SCH ×2 (08:14→20:53)
[2022-10-27] MEDS ORDERED: Warfarin 5 MG Tab PO ONE (16:00)
[2022-10-27] MEDS: Latanoprost 0.005% Ophth Soln 2.5 ML Bottle EYEBOTH SCH (20:54)
[2022-10-28] MEDS: Pantoprazole 40 MG Tab.CR PO SCH (05:42)
[2022-10-28 07:05] LABS: INR 2.37 (1.00-1.24); PROTHROMBIN TIME 23.8 sec (9.0-11.1)
[2022-10-28] MEDS ORDERED: Hydrocortisone 2.5% Crm 30 GM Tube TOP PRN (08:07)
[2022-10-28] MEDS: Formoterol/Mometasone 200-5 MCG 8.8 GM Inhaler IH SCH ×2 (09:26→20:37)
[2022-10-28] MEDS: Acetaminophen 325 MG Tab PO SCH ×3 (09:27→20:38)
[2022-10-28] MEDS: Ferrous Sulfate 325 MG Tab PO SCH ×2 (09:28→17:24)
[2022-10-28] MEDS: Sennosides/Docusate Sodium 50-8.6 MG Tab PO SCH (09:28)
[2022-10-28] MEDS: Polyethylene Glycol 3350 Powder 17 GM Packet PO SCH (09:28)
[2022-10-28] MEDS: Multivitamin Tab PO SCH (09:28)
[2022-10-28] MEDS: Aspirin 81 MG Tab.EC PO SCH (09:28)
[2022-10-28] MEDS: Cyanocobalamin (Vitamin B12) 1,000 MCG Tab PO SCH (09:29)
[2022-10-28] MEDS: levETIRAcetam 250 MG Tab PO SCH ×2 (09:29→20:37)
[2022-10-28] MEDS: Dorzolamide 2% Ophth Soln 10 ML Bottle EYELF SCH ×2 (09:29→20:37)
[2022-10-28] MEDS ORDERED: Warfarin 5 MG Tab PO ONE (16:00)
[2022-10-28] MEDS: Latanoprost 0.005% Ophth Soln 2.5 ML Bottle EYEBOTH SCH (20:38)
[2022-10-29] MEDS: Pantoprazole 40 MG Tab.CR PO SCH (05:48)
[2022-10-29 07:20] LABS: INR 2.52 (1.00-1.24); PROTHROMBIN TIME 25.2 sec (9.0-11.1)
[2022-10-29] MEDS: Formoterol/Mometasone 200-5 MCG 8.8 GM Inhaler IH SCH ×2 (08:12→20:54)
[2022-10-29] MEDS: Ferrous Sulfate 325 MG Tab PO SCH ×2 (08:12→17:21)
[2022-10-29] MEDS: Aspirin 81 MG Tab.EC PO SCH (08:12)
[2022-10-29] MEDS: levETIRAcetam 250 MG Tab PO SCH ×2 (08:12→20:55)
[2022-10-29] MEDS: Sennosides/Docusate Sodium 50-8.6 MG Tab PO SCH (08:13)
[2022-10-29] MEDS: Multivitamin Tab PO SCH (08:13)
[2022-10-29] MEDS: Acetaminophen 325 MG Tab PO SCH ×3 (08:14→20:56)
[2022-10-29] MEDS: Cyanocobalamin (Vitamin B12) 1,000 MCG Tab PO SCH (08:15)
[2022-10-29] MEDS: Dorzolamide 2% Ophth Soln 10 ML Bottle EYELF SCH ×2 (08:15→20:57)
[2022-10-29] MEDS: Polyethylene Glycol 3350 Powder 17 GM Packet PO SCH (08:16)
[2022-10-29] MEDS ORDERED: Warfarin 5 MG Tab PO ONE (16:00)
[2022-10-29] MEDS: Latanoprost 0.005% Ophth Soln 2.5 ML Bottle EYEBOTH SCH (20:56)
[2022-10-30] MEDS: Pantoprazole 40 MG Tab.CR PO SCH (05:26)
[2022-10-30 07:05] LABS: INR 2.52 (1.00-1.24); PROTHROMBIN TIME 25.2 sec (9.0-11.1)
[2022-10-30] MEDS: Ferrous Sulfate 325 MG Tab PO SCH ×2 (08:18→17:40)
[2022-10-30] MEDS: Aspirin 81 MG Tab.EC PO SCH (08:20)
[2022-10-30] MEDS: levETIRAcetam 250 MG Tab PO SCH ×2 (08:21→20:32)
[2022-10-30] MEDS: Sennosides/Docusate Sodium 50-8.6 MG Tab PO SCH (08:22)
[2022-10-30] MEDS: Multivitamin Tab PO SCH (08:22)
[2022-10-30] MEDS: Acetaminophen 325 MG Tab PO SCH ×3 (08:23→20:33)
[2022-10-30] MEDS: Formoterol/Mometasone 200-5 MCG 8.8 GM Inhaler IH SCH ×2 (08:27→20:31)
[2022-10-30] MEDS: Cyanocobalamin (Vitamin B12) 1,000 MCG Tab PO SCH (08:27)
[2022-10-30] MEDS: Polyethylene Glycol 3350 Powder 17 GM Packet PO SCH (08:28)
[2022-10-30] MEDS: Dorzolamide 2% Ophth Soln 10 ML Bottle EYELF SCH ×2 (08:28→20:33)
[2022-10-30] MEDS ORDERED: Warfarin 5 MG Tab PO ONE (16:00)
[2022-10-30] MEDS: Latanoprost 0.005% Ophth Soln 2.5 ML Bottle EYEBOTH SCH (20:35)
[2022-10-31] MEDS: Pantoprazole 40 MG Tab.CR PO SCH (06:27)
[2022-10-31 06:39] LABS: INR 2.42 (1.00-1.24); PROTHROMBIN TIME 24.3 sec (9.0-11.1)
[2022-10-31] MEDS: Formoterol/Mometasone 200-5 MCG 8.8 GM Inhaler IH SCH ×2 (08:06→20:46)
[2022-10-31] MEDS: Ferrous Sulfate 325 MG Tab PO SCH ×2 (08:06→18:00)
[2022-10-31] MEDS: levETIRAcetam 250 MG Tab PO SCH ×2 (08:07→20:46)
[2022-10-31] MEDS: Aspirin 81 MG Tab.EC PO SCH (08:07)
[2022-10-31] MEDS: Polyethylene Glycol 3350 Powder 17 GM Packet PO SCH (08:08)
[2022-10-31] MEDS: Sennosides/Docusate Sodium 50-8.6 MG Tab PO SCH (08:08)
[2022-10-31] MEDS: Dorzolamide 2% Ophth Soln 10 ML Bottle EYELF SCH ×2 (08:09→20:47)
[2022-10-31] MEDS: Multivitamin Tab PO SCH (08:09)
[2022-10-31] MEDS: Acetaminophen 325 MG Tab PO SCH ×3 (08:10→20:48)
[2022-10-31] MEDS: Cyanocobalamin (Vitamin B12) 1,000 MCG Tab PO SCH (08:11)
[2022-10-31] MEDS ORDERED: Warfarin 5 MG Tab PO ONE (16:00)
[2022-10-31] MEDS: Latanoprost 0.005% Ophth Soln 2.5 ML Bottle EYEBOTH SCH (20:48)
[2022-11-01] MEDS: Pantoprazole 40 MG Tab.CR PO SCH (06:01)
[2022-11-01 06:32] LABS: INR 2.39 (1.00-1.24)
[2022-11-01] MEDS: levETIRAcetam 250 MG Tab PO SCH ×2 (08:14→20:31)
[2022-11-01] MEDS: Ferrous Sulfate 325 MG Tab PO SCH ×2 (08:14→17:52)
[2022-11-01] MEDS: Formoterol/Mometasone 200-5 MCG 8.8 GM Inhaler IH SCH ×2 (08:14→20:30)
[2022-11-01] MEDS: Polyethylene Glycol 3350 Powder 17 GM Packet PO SCH (08:14)
[2022-11-01] MEDS: Acetaminophen 325 MG Tab PO SCH ×3 (08:15→20:31)
[2022-11-01] MEDS: Aspirin 81 MG Tab.EC PO SCH (08:15)
[2022-11-01] MEDS: Cyanocobalamin (Vitamin B12) 1,000 MCG Tab PO SCH (08:16)
[2022-11-01] MEDS: Multivitamin Tab PO SCH (08:16)
[2022-11-01] MEDS: Dorzolamide 2% Ophth Soln 10 ML Bottle EYELF SCH ×2 (08:16→20:31)
[2022-11-01] MEDS: Sennosides/Docusate Sodium 50-8.6 MG Tab PO SCH (14:00)
[2022-11-01] MEDS ORDERED: Warfarin 5 MG, Warfarin 2.5 MG PO ONE ×2 (16:00)
[2022-11-01] MEDS: Latanoprost 0.005% Ophth Soln 2.5 ML Bottle EYEBOTH SCH (20:32)
[2022-11-02] MEDS: Pantoprazole 40 MG Tab.CR PO SCH (05:56)
[2022-11-02] MEDS: Ferrous Sulfate 325 MG Tab PO SCH ×2 (07:48→17:51)
[2022-11-02] MEDS: Dorzolamide 2% Ophth Soln 10 ML Bottle EYELF SCH ×2 (08:01→21:45)
[2022-11-02] MEDS: Formoterol/Mometasone 200-5 MCG 8.8 GM Inhaler IH SCH ×2 (08:01→21:40)
[2022-11-02] MEDS: Acetaminophen 325 MG Tab PO SCH ×3 (08:02→21:44)
[2022-11-02] MEDS: Multivitamin Tab PO SCH (08:02)
[2022-11-02] MEDS: Cyanocobalamin (Vitamin B12) 1,000 MCG Tab PO SCH (08:03)
[2022-11-02] MEDS: Aspirin 81 MG Tab.EC PO SCH (08:03)
[2022-11-02] MEDS: Sennosides/Docusate Sodium 50-8.6 MG Tab PO SCH (08:03)
[2022-11-02] MEDS: levETIRAcetam 250 MG Tab PO SCH ×2 (08:03→21:43)
[2022-11-02] MEDS: Polyethylene Glycol 3350 Powder 17 GM Packet PO SCH (08:04)
[2022-11-02] MEDS ORDERED: amLODIPine 2.5 MG Tab PO PRN (09:03)
[2022-11-02] MEDS ORDERED: Warfarin 5 MG Tab PO ONE (16:00)
[2022-11-02] MEDS: Latanoprost 0.005% Ophth Soln 2.5 ML Bottle EYEBOTH SCH (21:44)
[2022-11-03] MEDS: Pantoprazole 40 MG Tab.CR PO SCH (06:01)
[2022-11-03 07:02] LABS: INR 2.64 (1.00-1.24); PROTHROMBIN TIME 26.5 sec (9.0-11.1)
[2022-11-03] MEDS: Aspirin 81 MG Tab.EC PO SCH (08:21)
[2022-11-03] MEDS: levETIRAcetam 250 MG Tab PO SCH ×2 (08:21→21:58)
[2022-11-03] MEDS: Formoterol/Mometasone 200-5 MCG 8.8 GM Inhaler IH SCH ×2 (08:21→21:57)
[2022-11-03] MEDS: Ferrous Sulfate 325 MG Tab PO SCH ×2 (08:21→17:48)
[2022-11-03] MEDS: Polyethylene Glycol 3350 Powder 17 GM Packet PO SCH (08:21)
[2022-11-03] MEDS: Dorzolamide 2% Ophth Soln 10 ML Bottle EYELF SCH ×2 (08:22→22:02)
[2022-11-03] MEDS: Acetaminophen 325 MG Tab PO SCH ×3 (08:22→21:58)
[2022-11-03] MEDS: Sennosides/Docusate Sodium 50-8.6 MG Tab PO SCH (08:22)
[2022-11-03] MEDS: Multivitamin Tab PO SCH (08:22)
[2022-11-03] MEDS: Cyanocobalamin (Vitamin B12) 1,000 MCG Tab PO SCH (08:23)
[2022-11-03] MEDS: Warfarin 5 MG Tab PO SCH (16:24)
[2022-11-03] MEDS: Latanoprost 0.005% Ophth Soln 2.5 ML Bottle EYEBOTH SCH (22:01)
[2022-11-04] MEDS: Pantoprazole 40 MG Tab.CR PO SCH (06:03)
[2022-11-04] MEDS: Ferrous Sulfate 325 MG Tab PO SCH ×3 (08:15→17:04)
[2022-11-04] MEDS: Formoterol/Mometasone 200-5 MCG 8.8 GM Inhaler IH SCH ×2 (08:15→20:49)
[2022-11-04] MEDS: levETIRAcetam 250 MG Tab PO SCH ×2 (08:16→20:49)
[2022-11-04] MEDS: Acetaminophen 325 MG Tab PO SCH ×3 (08:16→20:48)
[2022-11-04] MEDS: Sennosides/Docusate Sodium 50-8.6 MG Tab PO SCH (08:16)
[2022-11-04] MEDS: Polyethylene Glycol 3350 Powder 17 GM Packet PO SCH (08:16)
[2022-11-04] MEDS: Aspirin 81 MG Tab.EC PO SCH (08:16)
[2022-11-04] MEDS: Dorzolamide 2% Ophth Soln 10 ML Bottle EYELF SCH ×2 (08:17→20:47)
[2022-11-04] MEDS: Multivitamin Tab PO SCH (08:17)
[2022-11-04] MEDS: Cyanocobalamin (Vitamin B12) 1,000 MCG Tab PO SCH (08:19)
[2022-11-04] MEDS: Warfarin 5 MG Tab PO SCH (15:45)
[2022-11-04] MEDS: Latanoprost 0.005% Ophth Soln 2.5 ML Bottle EYEBOTH SCH (20:50)
[2022-11-05] MEDS: Pantoprazole 40 MG Tab.CR PO SCH (06:16)
[2022-11-05 07:31] LABS: INR 2.16 (1.00-1.24); PROTHROMBIN TIME 21.7 sec (9.0-11.1)
[2022-11-05] MEDS: Ferrous Sulfate 325 MG Tab PO SCH ×2 (09:54→18:18)
[2022-11-05] MEDS: Aspirin 81 MG Tab.EC PO SCH (09:54)
[2022-11-05] MEDS: Formoterol/Mometasone 200-5 MCG 8.8 GM Inhaler IH SCH ×2 (09:54→20:47)
[2022-11-05] MEDS: levETIRAcetam 250 MG Tab PO SCH ×2 (09:55→20:48)
[2022-11-05] MEDS: Polyethylene Glycol 3350 Powder 17 GM Packet PO SCH (09:55)
[2022-11-05] MEDS: Multivitamin Tab PO SCH (09:55)
[2022-11-05] MEDS: Sennosides/Docusate Sodium 50-8.6 MG Tab PO SCH (09:55)
[2022-11-05] MEDS: Cyanocobalamin (Vitamin B12) 1,000 MCG Tab PO SCH (09:56)
[2022-11-05] MEDS: Acetaminophen 325 MG Tab PO SCH ×3 (09:56→20:49)
[2022-11-05] MEDS: Dorzolamide 2% Ophth Soln 10 ML Bottle EYELF SCH ×2 (09:56→20:48)
[2022-11-05] MEDS: Warfarin 5 MG Tab PO SCH (18:17)
[2022-11-05] MEDS: Latanoprost 0.005% Ophth Soln 2.5 ML Bottle EYEBOTH SCH (20:49)
[2022-11-06] MEDS: Pantoprazole 40 MG Tab.CR PO SCH (06:58)
[2022-11-06] MEDS: Ferrous Sulfate 325 MG Tab PO SCH ×2 (09:03→17:36)
[2022-11-06] MEDS: Formoterol/Mometasone 200-5 MCG 8.8 GM Inhaler IH SCH ×2 (09:03→20:24)
[2022-11-06] MEDS: Multivitamin Tab PO SCH (09:04)
[2022-11-06] MEDS: Acetaminophen 325 MG Tab PO SCH ×3 (09:04→20:25)
[2022-11-06] MEDS: Cyanocobalamin (Vitamin B12) 1,000 MCG Tab PO SCH (09:04)
[2022-11-06] MEDS: Polyethylene Glycol 3350 Powder 17 GM Packet PO SCH (09:04)
[2022-11-06] MEDS: levETIRAcetam 250 MG Tab PO SCH ×2 (09:04→20:24)
[2022-11-06] MEDS: Aspirin 81 MG Tab.EC PO SCH (09:04)
[2022-11-06] MEDS: Dorzolamide 2% Ophth Soln 10 ML Bottle EYELF SCH ×2 (09:05→20:25)
[2022-11-06] MEDS: Sennosides/Docusate Sodium 50-8.6 MG Tab PO SCH (09:05)
[2022-11-06] MEDS ORDERED: Warfarin 5 MG, Warfarin 2.5 MG PO ONE ×2 (16:00)
[2022-11-06] MEDS: Latanoprost 0.005% Ophth Soln 2.5 ML Bottle EYEBOTH SCH (20:25)
[2022-11-07] MEDS: Pantoprazole 40 MG Tab.CR PO SCH (06:01)
[2022-11-07 06:45] LABS: INR 2.03 (1.00-1.24); PROTHROMBIN TIME 20.5 sec (9.0-11.1)
[2022-11-07] MEDS: Ferrous Sulfate 325 MG Tab PO SCH ×2 (08:32→18:53)
[2022-11-07] MEDS: Formoterol/Mometasone 200-5 MCG 8.8 GM Inhaler IH SCH ×2 (08:32→20:36)
[2022-11-07] MEDS: Aspirin 81 MG Tab.EC PO SCH (08:33)
[2022-11-07] MEDS: levETIRAcetam 250 MG Tab PO SCH ×2 (08:34→20:37)
[2022-11-07] MEDS: Sennosides/Docusate Sodium 50-8.6 MG Tab PO SCH (08:35)
[2022-11-07] MEDS: Polyethylene Glycol 3350 Powder 17 GM Packet PO SCH (08:35)
[2022-11-07] MEDS: Dorzolamide 2% Ophth Soln 10 ML Bottle EYELF SCH ×2 (08:36→20:37)
[2022-11-07] MEDS: Acetaminophen 325 MG Tab PO SCH ×3 (08:36→20:38)
[2022-11-07] MEDS: Multivitamin Tab PO SCH (08:36)
[2022-11-07] MEDS: Cyanocobalamin (Vitamin B12) 1,000 MCG Tab PO SCH (08:37)
[2022-11-07] MEDS: Warfarin 5 MG Tab PO SCH (16:48)
[2022-11-07] MEDS: Latanoprost 0.005% Ophth Soln 2.5 ML Bottle EYEBOTH SCH (20:40)
[2022-11-08] MEDS: Pantoprazole 40 MG Tab.CR PO SCH (06:48)
[2022-11-08] MEDS: Aspirin 81 MG Tab.EC PO SCH (08:17)
[2022-11-08] MEDS: Ferrous Sulfate 325 MG Tab PO SCH ×2 (08:17→17:46)
[2022-11-08] MEDS: Formoterol/Mometasone 200-5 MCG 8.8 GM Inhaler IH SCH ×2 (08:17→20:20)
[2022-11-08] MEDS: Polyethylene Glycol 3350 Powder 17 GM Packet PO SCH (08:18)
[2022-11-08] MEDS: levETIRAcetam 250 MG Tab PO SCH ×2 (08:18→20:31)
[2022-11-08] MEDS: Multivitamin Tab PO SCH (08:19)
[2022-11-08] MEDS: Sennosides/Docusate Sodium 50-8.6 MG Tab PO SCH (08:19)
[2022-11-08] MEDS: Dorzolamide 2% Ophth Soln 10 ML Bottle EYELF SCH ×2 (08:19→20:32)
[2022-11-08] MEDS: Acetaminophen 325 MG Tab PO SCH ×3 (08:20→20:33)
[2022-11-08] MEDS: Cyanocobalamin (Vitamin B12) 1,000 MCG Tab PO SCH (08:20)
[2022-11-08] MEDS: Warfarin 5 MG Tab PO SCH (15:41)
[2022-11-08] MEDS: Latanoprost 0.005% Ophth Soln 2.5 ML Bottle EYEBOTH SCH (20:35)
[2022-11-09] MEDS: Pantoprazole 40 MG Tab.CR PO SCH (05:45)
[2022-11-09 06:30] LABS: INR 2.59 (1.00-1.24)
[2022-11-09] MEDS: Ferrous Sulfate 325 MG Tab PO SCH (08:42)
[2022-11-09] MEDS: Formoterol/Mometasone 200-5 MCG 8.8 GM Inhaler IH SCH (08:43)
[2022-11-09] MEDS: levETIRAcetam 250 MG Tab PO SCH (08:43)
[2022-11-09] MEDS: Polyethylene Glycol 3350 Powder 17 GM Packet PO SCH (08:43)
[2022-11-09] MEDS: Aspirin 81 MG Tab.EC PO SCH (08:43)
[2022-11-09] MEDS: Sennosides/Docusate Sodium 50-8.6 MG Tab PO SCH (08:44)
[2022-11-09] MEDS: Multivitamin Tab PO SCH (08:44)
[2022-11-09] MEDS: Acetaminophen 325 MG Tab PO SCH (08:44)
[2022-11-09] MEDS: Cyanocobalamin (Vitamin B12) 1,000 MCG Tab PO SCH (08:44)
[2022-11-09] MEDS: Dorzolamide 2% Ophth Soln 10 ML Bottle EYELF SCH (08:45)
[2022-11-09 13:08] VITALS: BP 146/49; PULSE 75
[2022-11-13] MEDS ORDERED: Warfarin 5 MG, Warfarin 2.5 MG PO SCH ×2 (16:00)
== END 2022-11-09 13:55 | disposition home health service (06) | DRG 560 ==
LOC: FB.MS 10:24
PROVIDERS: ADMIT Family Medicine; ATTEND Family Medicine
DX: S52.502D Unspecified fracture of the lower end of left radius, subsequent encounter for closed fracture with routine healing (principal); G40.109 Localization-related (focal) (partial) symptomatic epilepsy and epileptic syndromes with simple partial seizures, not intractable, without status epilepticus; I50.32 Chronic diastolic (congestive) heart failure; N30.01 Acute cystitis with hematuria; J98.11 Atelectasis; R53.1 Weakness; S22.070D Wedge compression fracture of T9-T10 vertebra, subsequent encounter for fracture with routine healing; Z66 Do not resuscitate; I25.10 Atherosclerotic heart disease of native coronary artery without angina pectoris; G70.00 Myasthenia gravis without (acute) exacerbation; M34.1 CR(E)ST syndrome; I27.20 Pulmonary hypertension, unspecified; I48.0 Paroxysmal atrial fibrillation; R13.12 Dysphagia, oropharyngeal phase; I11.0 Hypertensive heart disease with heart failure; E78.5 Hyperlipidemia, unspecified; J84.10 Pulmonary fibrosis, unspecified; H54.7 Unspecified visual loss; K21.9 Gastro-esophageal reflux disease without esophagitis; R32 Unspecified urinary incontinence; M19.90 Unspecified osteoarthritis, unspecified site; D50.9 Iron deficiency anemia, unspecified; Z79.82 Long term (current) use of aspirin; Z79.899 Other long term (current) drug therapy; Z88.8 Allergy status to other drugs, medicaments and biological substances; Z87.891 Personal history of nicotine dependence; Z90.49 Acquired absence of other specified parts of digestive tract; Z98.890 Other specified postprocedural states
CPT/HCPCS: 36415; 51701; 70450; 71045; 80048; 80053; 81001; 82947; 83735; 84146; 84484; 85025; 85610; 85730; 93005; 94150; 97110-GO; 97116-GP; 97161-GP; 97530-GO; 97530-GP; 97535-GO; 97760-GO; A9270-GY; C1758; J0780; J3490; J7030; U0002

== ENCOUNTER 2022-11-10 09:08 | Emergency (ER) | payer MEDICARE, OTHER ==
[2022-11-10 10:42] VITALS: BP 156/69; PULSE 80
== END 2022-11-10 10:39 | disposition home or self-care (01) ==
LOC: FB.ED 09:08
DX: S09.90XA Unspecified injury of head, initial encounter (principal); I48.91 Unspecified atrial fibrillation; I25.10 Atherosclerotic heart disease of native coronary artery without angina pectoris; I10 Essential (primary) hypertension; J45.909 Unspecified asthma, uncomplicated; K21.9 Gastro-esophageal reflux disease without esophagitis; M19.90 Unspecified osteoarthritis, unspecified site; Z88.8 Allergy status to other drugs, medicaments and biological substances; Z88.1 Allergy status to other antibiotic agents; Z79.899 Other long term (current) drug therapy; Z79.82 Long term (current) use of aspirin; W18.30XA Fall on same level, unspecified, initial encounter
CPT/HCPCS: 70450; 99283

== ENCOUNTER 2022-11-13 19:31 | Emergency (ER) | payer MEDICARE, OTHER ==
[2022-11-13 20:20] LABS: BASOPHILS ABSOLUTE AUTO 0.1 x10-3/uL (0.0-0.1); BASOPHILS PERCENT AUTO 1.2 % (0.2-1.5); EOSINOPHILS ABSOLUTE AUTO 0.5 x10-3/uL (0.0-0.8); EOSINOPHILS PERCENT AUTO 6.7 % (0.6-8.1); HEMATOCRIT 25.9 % (34.2-48.2); HEMOGLOBIN 8.4 g/dL (11.4-15.5); LYMPHOCYTES ABSOLUTE AUTO 1.9 x10-3/uL (1.0-4.4); LYMPHOCYTES PERCENT AUTO 28.6 % (18.4-52.1); MEAN CORPUSCULAR HEMOGLOBIN 28.8 pg (23.9-33.9); MEAN CORPUSCULAR HGB CONC 32.4 g/dL (31.9-34.8); MEAN CORPUSCULAR VOLUME 88.8 fL (76.7-100.5); MEAN PLATELET VOLUME 7.7 fL (7.1-12.4); MONOCYTES ABSOLUTE AUTO 0.8 x10-3/uL (0.3-1.0); MONOCYTES PERCENT AUTO 11.4 % (4.4-15.7); NEUTROPHILS ABSOLUTE AUTO 3.5 x10-3/uL (1.5-6.3); NEUTROPHILS PERCENT AUTO 52.1 % (30.8-76.2); PLATELET COUNT,PLT 243 x10(3)uL (151-488); RED BLOOD CELL COUNT 2.92 x10(6)uL (3.60-5.20); RED CELL DISTRIBUTION WIDTH 16.3 % (12.3-16.5); WHITE BLOOD CELL COUNT,WBC 6.8 x10-3/uL (3.0-10.3)
[2022-11-13] MEDS: Sodium Chloride 0.9% 1,000 ML IV SCH (20:20)
[2022-11-13 20:21] LABS: BLOOD UREA NITROGEN,BUN 20 mg/dL (7-18); BUN/CREATININE RATIO 18.2 (9-20); CALCIUM 8.6 mg/dL (8.6-10.2); CARBON DIOXIDE,CO2 27 mmol/L (21-32); CHLORIDE,CL 107 mmol/L (100-110); CREATININE 1.1 mg/dL (0.55-1.02); ESTIMATED GFR 50 mL/min (>60); GLUCOSE RANDOM 123 mg/dL (80-116); POTASSIUM,K 3.8 mmol/L (3.5-5.3); SODIUM,NA 142 mmol/L (135-145)
[2022-11-13 20:26] LABS: A/G RATIO 0.9; ALANINE AMINOTRANSFERASE,ALT 17 U/L (12-36); ALKALINE PHOSPHATASE 114 IU/L (56-112); ASPARTATE AMNIOTRANSFERASE,AST 16 IU/L (5-25); BILIRUBIN TOTAL 0.2 mg/dL (0.1-1.3); PROTEIN TOTAL,TP 6.2 g/dL (6.0-8.0)
[2022-11-13 22:54] VITALS: BP 154/63; PULSE 86
== END 2022-11-13 22:40 | disposition home or self-care (01) ==
LOC: FB.ED 19:31
DX: E86.0 Dehydration (principal); D64.9 Anemia, unspecified; K21.9 Gastro-esophageal reflux disease without esophagitis; I10 Essential (primary) hypertension; J45.909 Unspecified asthma, uncomplicated; I48.91 Unspecified atrial fibrillation; I25.10 Atherosclerotic heart disease of native coronary artery without angina pectoris; Z95.2 Presence of prosthetic heart valve; Z79.01 Long term (current) use of anticoagulants; Z79.82 Long term (current) use of aspirin; Z79.899 Other long term (current) drug therapy; Z88.8 Allergy status to other drugs, medicaments and biological substances; Z88.1 Allergy status to other antibiotic agents; Z91.048 Other nonmedicinal substance allergy status
CPT/HCPCS: 36415; 80053; 84484; 85025; 93005; 96360; 99285-25; J7030

== ENCOUNTER 2022-12-06 11:41 | Inpatient (IN) | payer MEDICARE, OTHER ==
[2022-12-06] MEDS ORDERED: Acetaminophen 325 MG Tab PO PRN (15:47)
[2022-12-06] MEDS ORDERED: Carbamide Peroxide 6.5% Otic Soln 15 ML Bottle EARBOTH PRN (15:47)
[2022-12-06] MEDS ORDERED: Albuterol 8 GM Inhaler INH PRN (15:47)
[2022-12-06] MEDS ORDERED: Polyethylene Glycol 3350 Powder 17 GM Packet PO PRN (15:47)
[2022-12-06] MEDS ORDERED: Loperamide 2 MG Cap PO PRN (16:03)
[2022-12-06] MEDS ORDERED: Magnesium Hydroxide 400 MG/5 ML Susp 30 ML Cup PO PRN (16:03)
[2022-12-06] MEDS: FLUTICASONE SALMETEROL SCH (21:01)
[2022-12-06] MEDS: levETIRAcetam 250 MG Tab PO SCH (21:01)
[2022-12-06] MEDS: DORZOLAMIDE 2% EYELF SCH (21:02)
[2022-12-06] MEDS: Amoxicillin/Clavulanate K 875-125 MG Tab PO SCH (21:03)
[2022-12-06] MEDS: Latanoprost 0.005% Ophth Soln 2.5 ML Bottle *PTOM EYEBOTH SCH (21:03)
[2022-12-07] MEDS: Pantoprazole 40 MG Tab.CR PO SCH (06:00)
[2022-12-07] MEDS: Sennosides/Docusate Sodium 50-8.6 MG Tab PO SCH (08:59)
[2022-12-07] MEDS: levETIRAcetam 250 MG Tab PO SCH ×2 (08:59→20:25)
[2022-12-07] MEDS: Multivitamin Tab PO SCH (08:59)
[2022-12-07] MEDS: Aspirin 81 MG Tab.EC PO SCH (08:59)
[2022-12-07] MEDS: DORZOLAMIDE 2% EYELF SCH ×2 (09:00→20:26)
[2022-12-07] MEDS: FLUTICASONE SALMETEROL SCH ×2 (09:09→20:26)
[2022-12-07] MEDS: Amoxicillin/Clavulanate K 875-125 MG Tab PO SCH ×2 (09:10→21:15)
[2022-12-07] MEDS: Latanoprost 0.005% Ophth Soln 2.5 ML Bottle *PTOM EYEBOTH SCH (20:26)
[2022-12-08] MEDS: Pantoprazole 40 MG Tab.CR PO SCH (06:01)
[2022-12-08] MEDS: Aspirin 81 MG Tab.EC PO SCH (08:16)
[2022-12-08] MEDS: Sennosides/Docusate Sodium 50-8.6 MG Tab PO SCH (08:16)
[2022-12-08] MEDS: levETIRAcetam 250 MG Tab PO SCH ×2 (08:16→20:13)
[2022-12-08] MEDS: Multivitamin Tab PO SCH (08:16)
[2022-12-08] MEDS: FLUTICASONE SALMETEROL SCH ×2 (08:17→20:13)
[2022-12-08] MEDS: DORZOLAMIDE 2% EYELF SCH ×2 (08:18→20:14)
[2022-12-08] MEDS: Amoxicillin/Clavulanate K 875-125 MG Tab PO SCH ×2 (09:04→22:09)
[2022-12-08] MEDS: Latanoprost 0.005% Ophth Soln 2.5 ML Bottle *PTOM EYEBOTH SCH (20:14)
[2022-12-09] MEDS: Pantoprazole 40 MG Tab.CR PO SCH (06:17)
[2022-12-09] MEDS: Aspirin 81 MG Tab.EC PO SCH (08:43)
[2022-12-09] MEDS: Sennosides/Docusate Sodium 50-8.6 MG Tab PO SCH (08:44)
[2022-12-09] MEDS: FLUTICASONE SALMETEROL SCH ×2 (08:44→21:28)
[2022-12-09] MEDS: levETIRAcetam 250 MG Tab PO SCH ×2 (08:44→21:26)
[2022-12-09] MEDS: Multivitamin Tab PO SCH (08:45)
[2022-12-09] MEDS: DORZOLAMIDE 2% EYELF SCH ×2 (08:45→21:25)
[2022-12-09] MEDS: Amoxicillin/Clavulanate K 875-125 MG Tab PO SCH ×2 (09:04→21:26)
[2022-12-09] MEDS: Latanoprost 0.005% Ophth Soln 2.5 ML Bottle *PTOM EYEBOTH SCH (21:27)
[2022-12-10] MEDS: Pantoprazole 40 MG Tab.CR PO SCH (06:40)
[2022-12-10] MEDS: Multivitamin Tab PO SCH (08:52)
[2022-12-10] MEDS: levETIRAcetam 250 MG Tab PO SCH ×2 (08:52→20:36)
[2022-12-10] MEDS: Aspirin 81 MG Tab.EC PO SCH (08:53)
[2022-12-10] MEDS: DORZOLAMIDE 2% EYELF SCH ×2 (08:53→20:36)
[2022-12-10] MEDS: FLUTICASONE SALMETEROL SCH ×2 (08:53→20:35)
[2022-12-10] MEDS: Sennosides/Docusate Sodium 50-8.6 MG Tab PO SCH (08:53)
[2022-12-10] MEDS: Amoxicillin/Clavulanate K 875-125 MG Tab PO SCH ×2 (09:00→21:00)
[2022-12-10] MEDS: Latanoprost 0.005% Ophth Soln 2.5 ML Bottle *PTOM EYEBOTH SCH (20:36)
[2022-12-11] MEDS: Pantoprazole 40 MG Tab.CR PO SCH (06:20)
[2022-12-11] MEDS: FLUTICASONE SALMETEROL SCH ×2 (08:40→21:06)
[2022-12-11] MEDS: levETIRAcetam 250 MG Tab PO SCH ×2 (08:40→21:04)
[2022-12-11] MEDS: Aspirin 81 MG Tab.EC PO SCH (08:40)
[2022-12-11] MEDS: Multivitamin Tab PO SCH (08:41)
[2022-12-11] MEDS: Sennosides/Docusate Sodium 50-8.6 MG Tab PO SCH (08:41)
[2022-12-11] MEDS: DORZOLAMIDE 2% EYELF SCH ×2 (08:41→21:07)
[2022-12-11] MEDS: Amoxicillin/Clavulanate K 875-125 MG Tab PO SCH (09:35)
[2022-12-11] MEDS: Latanoprost 0.005% Ophth Soln 2.5 ML Bottle *PTOM EYEBOTH SCH (21:07)
[2022-12-12] MEDS: Pantoprazole 40 MG Tab.CR PO SCH (05:55)
[2022-12-12] MEDS: Aspirin 81 MG Tab.EC PO SCH (08:31)
[2022-12-12] MEDS: Multivitamin Tab PO SCH (08:31)
[2022-12-12] MEDS: levETIRAcetam 250 MG Tab PO SCH ×2 (08:31→20:05)
[2022-12-12] MEDS: Sennosides/Docusate Sodium 50-8.6 MG Tab PO SCH (08:31)
[2022-12-12] MEDS: FLUTICASONE SALMETEROL SCH ×2 (08:31→20:06)
[2022-12-12] MEDS: DORZOLAMIDE 2% EYELF SCH ×2 (08:32→20:06)
[2022-12-12] MEDS: Latanoprost 0.005% Ophth Soln 2.5 ML Bottle *PTOM EYEBOTH SCH (20:06)
[2022-12-13] MEDS: Pantoprazole 40 MG Tab.CR PO SCH (06:14)
[2022-12-13] MEDS: FLUTICASONE SALMETEROL SCH ×2 (08:24→20:42)
[2022-12-13] MEDS: levETIRAcetam 250 MG Tab PO SCH ×2 (08:24→20:41)
[2022-12-13] MEDS: Multivitamin Tab PO SCH (08:24)
[2022-12-13] MEDS: Sennosides/Docusate Sodium 50-8.6 MG Tab PO SCH (08:24)
[2022-12-13] MEDS: Aspirin 81 MG Tab.EC PO SCH (08:25)
[2022-12-13] MEDS: DORZOLAMIDE 2% EYELF SCH ×2 (08:25→20:42)
[2022-12-13] MEDS: Latanoprost 0.005% Ophth Soln 2.5 ML Bottle *PTOM EYEBOTH SCH (20:42)
[2022-12-14] MEDS: Pantoprazole 40 MG Tab.CR PO SCH (05:29)
[2022-12-14] MEDS: Aspirin 81 MG Tab.EC PO SCH (08:33)
[2022-12-14] MEDS: levETIRAcetam 250 MG Tab PO SCH (08:33)
[2022-12-14] MEDS: Multivitamin Tab PO SCH (08:34)
[2022-12-14] MEDS: Sennosides/Docusate Sodium 50-8.6 MG Tab PO SCH (08:34)
[2022-12-14] MEDS: DORZOLAMIDE 2% EYELF SCH (08:36)
[2022-12-14] MEDS: FLUTICASONE SALMETEROL SCH (08:37)
[2022-12-14 12:45] VITALS: BP 152/66; PULSE 69
== END 2022-12-14 13:45 | disposition home health service (06) | DRG 948 ==
LOC: FB.MS 14:54
PROVIDERS: ADMIT Student in an Organized Health Care Education/Training Program; ATTEND Family Medicine
DX: R53.1 Weakness (principal); I50.32 Chronic diastolic (congestive) heart failure; G40.109 Localization-related (focal) (partial) symptomatic epilepsy and epileptic syndromes with simple partial seizures, not intractable, without status epilepticus; E44.0 Moderate protein-calorie malnutrition; S06.5X0D Traumatic subdural hemorrhage without loss of consciousness, subsequent encounter; I48.91 Unspecified atrial fibrillation; I25.10 Atherosclerotic heart disease of native coronary artery without angina pectoris; E78.00 Pure hypercholesterolemia, unspecified; J45.909 Unspecified asthma, uncomplicated; Z20.822 Contact with and (suspected) exposure to COVID-19; K21.9 Gastro-esophageal reflux disease without esophagitis; G70.00 Myasthenia gravis without (acute) exacerbation; G43.909 Migraine, unspecified, not intractable, without status migrainosus; I11.0 Hypertensive heart disease with heart failure; R26.2 Difficulty in walking, not elsewhere classified; S52.502D Unspecified fracture of the lower end of left radius, subsequent encounter for closed fracture with routine healing; W19.XXXD Unspecified fall, subsequent encounter; R53.81 Other malaise; M34.1 CR(E)ST syndrome; R13.12 Dysphagia, oropharyngeal phase; M19.91 Primary osteoarthritis, unspecified site; I27.20 Pulmonary hypertension, unspecified; D50.9 Iron deficiency anemia, unspecified; Z88.8 Allergy status to other drugs, medicaments and biological substances; Z88.1 Allergy status to other antibiotic agents; Z79.899 Other long term (current) drug therapy; Z79.82 Long term (current) use of aspirin; Z79.2 Long term (current) use of antibiotics; Z95.2 Presence of prosthetic heart valve; Z87.01 Personal history of pneumonia (recurrent); Z86.010 Personal history of colon polyps; Z98.49 Cataract extraction status, unspecified eye; Z90.89 Acquired absence of other organs; Z90.49 Acquired absence of other specified parts of digestive tract; Z98.890 Other specified postprocedural states; Z87.891 Personal history of nicotine dependence; Z87.81 Personal history of (healed) traumatic fracture; Z68.20 Body mass index [BMI] 20.0-20.9, adult
CPT/HCPCS: 73110-LT; 97110-GO; 97161-GP; 97165-GO; 97530-GO; 97530-GP; 97535-GO; 99305; 99316; A9270-GY; U0002

== ENCOUNTER 2023-01-23 10:15 | Emergency (ER) | payer MEDICARE, OTHER ==
[2023-01-23 11:43] LABS: BASOPHILS ABSOLUTE AUTO 0.1 x10-3/uL (0.0-0.1); BASOPHILS PERCENT AUTO 0.9 % (0.2-1.5); EOSINOPHILS ABSOLUTE AUTO 0.3 x10-3/uL (0.0-0.8); EOSINOPHILS PERCENT AUTO 2.8 % (0.6-8.1); HEMATOCRIT 36.7 % (34.2-48.2); HEMOGLOBIN 11.8 g/dL (11.4-15.5); LYMPHOCYTES ABSOLUTE AUTO 1.4 x10-3/uL (1.0-4.4); LYMPHOCYTES PERCENT AUTO 14.6 % (18.4-52.1); MEAN CORPUSCULAR HEMOGLOBIN 27.2 pg (23.9-33.9); MEAN CORPUSCULAR HGB CONC 32.1 g/dL (31.9-34.8); MEAN CORPUSCULAR VOLUME 84.7 fL (76.7-100.5); MEAN PLATELET VOLUME 8.7 fL (7.1-12.4); MONOCYTES ABSOLUTE AUTO 0.6 x10-3/uL (0.3-1.0); MONOCYTES PERCENT AUTO 6.3 % (4.4-15.7); NEUTROPHILS ABSOLUTE AUTO 7.3 x10-3/uL (1.5-6.3); NEUTROPHILS PERCENT AUTO 75.4 % (30.8-76.2); PLATELET COUNT,PLT 191 x10(3)uL (151-488); RED BLOOD CELL COUNT 4.33 x10(6)uL (3.60-5.20); RED CELL DISTRIBUTION WIDTH 17.1 % (12.3-16.5); WHITE BLOOD CELL COUNT,WBC 9.7 x10-3/uL (3.0-10.3)
[2023-01-23 11:48] LABS: BLOOD UREA NITROGEN,BUN 18 mg/dL (7-18); BUN/CREATININE RATIO 16.4 (9-20); CALCIUM 8.9 mg/dL (8.6-10.2); CARBON DIOXIDE,CO2 29 mmol/L (21-32); CHLORIDE,CL 108 mmol/L (100-110); CREATININE 1.1 mg/dL (0.55-1.02); ESTIMATED GFR 50 mL/min (>60); GLUCOSE RANDOM 94 mg/dL (80-116); POTASSIUM,K 4.4 mmol/L (3.5-5.3); SODIUM,NA 145 mmol/L (135-145)
[2023-01-23 11:53] LABS: A/G RATIO 1.1; ALANINE AMINOTRANSFERASE,ALT 23 U/L (12-36); ALBUMIN 3.5 g/dL (3.2-4.6); ALKALINE PHOSPHATASE 130 IU/L (56-112); ASPARTATE AMNIOTRANSFERASE,AST 20 IU/L (5-25); BILIRUBIN TOTAL 0.2 mg/dL (0.1-1.3); PROTEIN TOTAL,TP 6.7 g/dL (6.0-8.0)
[2023-01-23 12:03] LABS: C-REACTIVE PROTEIN 0.29 mg/dL (<0.33); TROPONIN I 47.5 pg/mL (4.0-60.3)
[2023-01-23] MEDS ORDERED: levETIRAcetam 500 MG Tab PO ONE (13:58)
[2023-01-23] MEDS ORDERED: Ondansetron 4 MG Tab.DIS PO ONE (14:05)
[2023-01-23 20:18] VITALS: BP 153/68; PULSE 68
== END 2023-01-23 14:43 | disposition home or self-care (01) ==
LOC: FB.ED 10:15
DX: G40.209 Localization-related (focal) (partial) symptomatic epilepsy and epileptic syndromes with complex partial seizures, not intractable, without status epilepticus (principal); I25.10 Atherosclerotic heart disease of native coronary artery without angina pectoris; E78.00 Pure hypercholesterolemia, unspecified; I10 Essential (primary) hypertension; Z88.8 Allergy status to other drugs, medicaments and biological substances; Z88.1 Allergy status to other antibiotic agents; Z79.82 Long term (current) use of aspirin; Z79.899 Other long term (current) drug therapy
CPT/HCPCS: 36415; 70450; 71046; 80053; 80177; 83880; 84484; 85025; 86140; 99285; A9270; Q0162

== ENCOUNTER 2023-05-02 10:31 | Emergency (ER) | payer MEDICARE, OTHER ==
[2023-05-02] MEDS: Sodium Chloride 0.9% 10 ML Syringe FLUSH PRN (11:22)
[2023-05-02] MEDS: Sodium Chloride 0.9% 1,000 ML IV SCH (11:22)
[2023-05-02 11:24] LABS: BILIRUBIN,URINE NEGATIVE (NEGATIVE); GLUCOSE,URINE NORMAL (NORMAL); KETONES,URINE NEGATIVE (NEGATIVE); LEUKOCYTE ESTERASE,URINE NEGATIVE (NEGATIVE); NITRITE,URINE NEGATIVE (NEGATIVE); OCCULT BLOOD,URINE MODERATE (NEGATIVE); PROTEIN,URINE TRACE mg/dL (NEGATIVE); UROBILINOGEN,URINE NORMAL (NEGATIVE)
[2023-05-02 11:33] LABS: APPEARANCE,URINE CLEAR (CLEAR); BACTERIA,URINE FEW (NS); COLOR,URINE YELLOW (YELLOW); RBC,URINE 0-5 (0-5); WBC,URINE 0-5 (0-5)
[2023-05-02 11:56] LABS: BASOPHILS ABSOLUTE AUTO 0.1 x10-3/uL (0.0-0.1); BASOPHILS PERCENT AUTO 0.6 % (0.2-1.5); EOSINOPHILS ABSOLUTE AUTO 0.3 x10-3/uL (0.0-0.8); EOSINOPHILS PERCENT AUTO 2.6 % (0.6-8.1); HEMATOCRIT 37.5 % (34.2-48.2); HEMOGLOBIN 12.2 g/dL (11.4-15.5); LYMPHOCYTES ABSOLUTE AUTO 1.2 x10-3/uL (1.0-4.4); LYMPHOCYTES PERCENT AUTO 12.4 % (18.4-52.1); MEAN CORPUSCULAR HEMOGLOBIN 27.5 pg (23.9-33.9); MEAN CORPUSCULAR HGB CONC 32.4 g/dL (31.9-34.8); MEAN CORPUSCULAR VOLUME 84.9 fL (76.7-100.5); MONOCYTES ABSOLUTE AUTO 0.7 x10-3/uL (0.3-1.0); MONOCYTES PERCENT AUTO 7.4 % (4.4-15.7); NEUTROPHILS ABSOLUTE AUTO 7.5 x10-3/uL (1.5-6.3); PLATELET COUNT,PLT 203 x10(3)uL (151-488); RED BLOOD CELL COUNT 4.42 x10(6)uL (3.60-5.20); RED CELL DISTRIBUTION WIDTH 16.4 % (12.3-16.5); WHITE BLOOD CELL COUNT,WBC 9.7 x10-3/uL (3.0-10.3)
[2023-05-02 11:58] LABS: BLOOD UREA NITROGEN,BUN 21 mg/dL (7-18); CALCIUM 9.2 mg/dL (8.6-10.2); CARBON DIOXIDE,CO2 30 mmol/L (21-32); CHLORIDE,CL 107 mmol/L (100-110); EST CRCL DRUG DOSING (CG) 33.58 mL/min; ESTIMATED GFR 56 mL/min (>60); GLUCOSE RANDOM 97 mg/dL (80-116); SODIUM,NA 143 mmol/L (135-145)
[2023-05-02 12:04] LABS: ALANINE AMINOTRANSFERASE,ALT 23 U/L (12-36); ALBUMIN 3.5 g/dL (3.2-4.6); ALKALINE PHOSPHATASE 134 IU/L (56-112); ASPARTATE AMNIOTRANSFERASE,AST 28 IU/L (5-25); BILIRUBIN TOTAL 0.4 mg/dL (0.1-1.3); PROTEIN TOTAL,TP 6.9 g/dL (6.0-8.0)
[2023-05-02 13:21] VITALS: BP 143/81; PULSE 67
== END 2023-05-02 13:20 | disposition home or self-care (01) ==
LOC: FB.ED 10:31
DX: M34.1 CR(E)ST syndrome (principal); I50.9 Heart failure, unspecified; I11.0 Hypertensive heart disease with heart failure; I25.10 Atherosclerotic heart disease of native coronary artery without angina pectoris; J45.909 Unspecified asthma, uncomplicated; K21.9 Gastro-esophageal reflux disease without esophagitis; M19.90 Unspecified osteoarthritis, unspecified site; W06.XXXA Fall from bed, initial encounter; Z79.82 Long term (current) use of aspirin; Z79.899 Other long term (current) drug therapy; Z88.1 Allergy status to other antibiotic agents; Z88.8 Allergy status to other drugs, medicaments and biological substances; Z91.048 Other nonmedicinal substance allergy status
CPT/HCPCS: 36415; 71045; 80053; 81001; 82550; 83880; 85025; 96360; 99283; 99283-25; J3490; J7030

== ENCOUNTER 2023-06-28 16:48 | Emergency (ER) | payer OTHER, MEDICARE ==
[2023-06-28] MEDS: Acetaminophen 500 MG Tab PO ONE (17:24)
== END 2023-06-28 20:00 | disposition hospice, home (50) ==
LOC: FB.ED 16:48
DX: M25.532 Pain in left wrist (principal); S01.81XA Laceration without foreign body of other part of head, initial encounter; Z90.49 Acquired absence of other specified parts of digestive tract; I10 Essential (primary) hypertension; E78.00 Pure hypercholesterolemia, unspecified; I25.10 Atherosclerotic heart disease of native coronary artery without angina pectoris; K21.9 Gastro-esophageal reflux disease without esophagitis; Z79.899 Other long term (current) drug therapy; Z88.8 Allergy status to other drugs, medicaments and biological substances; W01.198A Fall on same level from slipping, tripping and stumbling with subsequent striking against other object, initial encounter
CPT/HCPCS: 73030; 73110; 73502; 99283; A9270